=== PATIENT | male | born 1945 | race Caucasian/White ===

== ENCOUNTER 2023-04-05 12:59 | Inpatient (IN) | payer OTHER, SELFPAY ==
[2023-04-05] VITALS (12 sets, daily range): BP systolic 97–134; BP diastolic 45–92; PULSE 80; BMI 24.3
--- NOTE | 2023-04-05 10:55 | ED.GENMED ---
History of Present Illness
General
Chief Complaint: Change in Mental Status
Time Seen by Provider: 04/05/23 10:53
Travel History
Have you had any contact with someone who has COVID-19?: No
Do you have any symptoms of coronavirus? Fever > 100 degrees, chills, cough, shortness of breath, sore throat, loss of taste or smell, muscle aches, or headache?: No
History of Present Illness
History of Present Illness:
HPI: The patient presents from [facility] after an unresponsive episode. EMS noted initial hypotension but upon arrival here blood pressure is 122/71. The patient has a history of dementia and is currently unknown historian.
EXAM:
GENERAL: Appears in no distress, resting comfortably but does not participate with examination, he keeps his eyes closed but quickly responds to sternal rub
HEENT: Slightly dry oral mucosa
CARDIOVASCULAR: Regular rate and rhythm
PULMONARY: No respiratory distress, breathing is nonlabored, equal and clear breath sounds
ABDOMEN: Soft and nontender with no peritoneal signs
NEUROLOGIC: The patient has evidence of dementia, does not participate with exam and currently is nonverbal
EXTREMITIES: Moves all extremities equally, no tenderness, no edema
PYSCHIATRIC: Very limited historian, untestable insight and judgment
ED COURSE:
11 AM: I initially evaluated patient
NUMBER AND COMPLEXITY OF PROBLEMS ADDRESSED AT THE ENCOUNTER
� Chronic conditions affecting care: Dementia, diabetes, high blood pressure
� Acute Exacerbation and/or Progression of Chronic Illness: This is an acute problem
� Differential Diagnosis includes: Hypoglycemia, worsening dementia, bacteremia sepsis unlikely given normal initial vital signs and normal white count, DANIEL
AMOUNT AND/OR COMPLEXITY OF DATA TO BE REVIEWED AND ANALYZED
� I performed an independent evaluation of and my interpretation is:
EKG: Sinus 77, leftward axis deviation, right bundle branch block, this is not significantly changed in comparison to 03/22/2023
CT:
X-rays:
Laboratory Studies: White count normal, renal function is now 1.8, it was 1.4 last ED visit and prior to that was normal at baseline
Other:
� Review of other/old records: I reviewed the notes from [facility], the patient was seen here after syncopal event 2 weeks ago
� Clinical information was obtained by an independent historian: I tried calling daughter and the spouse at about 11:40 AM but there was no answer.
� Prescriptions/Medications Considered but not given:
� Further testing considered but not performed:
RISK OF COMPLICATIONS AND/OR MORBIDITY OR MORTALITY OF PATIENT MANAGEMENT
� Social determinants of health affecting care: From [facility]
� Discussion with other providers: Hospitalist for admission 11:43 AM
� Escalation of care including admission/observation vs risk of discharge considered: The patient has worsening renal function. He was given a liter of fluid. DANIEL likely due to dehydration but will check bladder scan. Bladder
scan only 90 mL. Mental status remains about the same on reassessment. I did review the ER notes from last visit from 2 weeks ago and at that time he also was not answering questions.
Past History
Past History
ED Past Medical History: HTN, Hypercholesterolemia, NIDDM and Other (Dementia)
ED Past Surgical History: Other (Unknown)
Social History
Tobacco: Non-smoker
Alcohol: Occasional
Drug: None
Personal:
Living: shelter
Employment: Retired
Family History
Family History: Other
Phy Exam
Physical Exam
Physical Exam:
See HPI
Course
Orders/Labs/Results
Orders:
Orders
04/05/23 10:42
Electrocardiogram (*1) Urgent
Reason for Study: Syncope
04/05/23 10:43
EKG- Treatment ONCE
04/05/23 10:51
CMP [Comprehensive Metabolic Panel] Urgent
Complete Blood Count/With Diff Urgent
04/05/23 11:23
0.9% Sodium Chloride 1000 ml [Nss] 1,000 ml IV BOLUS
Abnormal Lab Results
04/05/23
10:51
RBC 3.80 L 10^6/uL
(4.70-6.10)
Hgb 12.7 L g/dL
(13.0-18.0)
Hct 35.8 L %
(39.0-52.0)
MCV 94.2 H fL
(80.0-94.0)
MCH 33.4 H pg
(27.0-31.0)
Abs Immat Gran (auto) 0.1 H 10^3/uL
(0-0.05)
Immature Gran % 1.0 H %
(0-0.5)
Lymphocytes % 15.8 L %
(20.5-51.1)
BUN 45 H mg/dl
(9-20)
Creatinine 1.8 H mg/dL
(0.7-1.3)
Glucose 206 H mg/dl
(70-99)
04/05/23 10:51
04/05/23 10:51
Vital Signs
Initial and Last Documented VS:
Initial Vital Signs
Temp Pulse Resp BP Pulse Ox
97.7 F 70 18 122/71 98
04/05/23 10:44 04/05/23 10:44 04/05/23 10:44 04/05/23 10:44 04/05/23 10:44
Last Documented Vital Signs
Temp Pulse Resp BP Pulse Ox
97.7 F 75 15 123/63 94
04/05/23 10:44 04/05/23 11:30 04/05/23 11:30 04/05/23 11:00 04/05/23 11:30
*Critical Care Note
Total Time (30-74mins, 75-104mins- exclusive of procedures): Not Applicable
ED Attending Note
-
Portions of this chart may have been created with voice recognition software.� Occasional wrong word or��sound alike� substitutions may have occurred due to the inherent limitations of voice recognition software.
Discharge Plan
Departure
Patient Disposition: Admit
Date of Disposition: 04/05/23
Time of Disposition: 11:47
Presentation/result/management discussed w/ accepting MD/DO: Hospitalist
Discharge Problem:
DANIEL (acute kidney injury)
Prescriptions:
No Action
finasteride 5 mg Tablet
5 mg PO DAILY
carvedilol 6.25 MG tablet
6.25 mg PO DAILY
cholecalciferol (vitamin D3) 2,000 UNITS tablet
2,000 units PO BID
melatonin 10 MG capsule
10 mg PO HSPRN PRN (Reason: sleep)
omega 7-dzh-fug-fish oil [Fish Oil] 1 EACH capsule
1 ea PO DAILY
ammonium lactate 12 % Lotion
1 applic TOPICAL BID
therapeutic multivitamin Tablet
1 tab PO DAILY
pantoprazole 40 mg Tablet,Delayed Release (Dr/Ec)
40 mg PO DAILY Qty: 30 0RF
repaglinide 1 MG tablet
1 mg PO TID Qty: 30 0RF
irbesartan-hydrochlorothiazide 150-12.5 mg Tablet
1 tab PO DAILY
loperamide 2 mg Tablet
2 mg PO Q4HPRN PRN (Reason: diarrhea)
lorazepam 0.5 mg Tablet
0.5 mg PO Q6HPRN PRN (Reason: anxiety)
lorazepam 0.5 mg Tablet
0.5 mg PO BID
glipizide 2.5 mg Tablet Extended Release 24hr
12.5 mg PO DAILY
pioglitazone [Actos] 30 mg Tablet
30 mg PO DAILY
Desitin 40 % Paste
1 applic TOPICAL BID
magnesium oxide 500 mg tablet
500 mg PO BID
Interventions
Interventions:
*Risk Screen - Suicide Last Done: 04/05/23 10:44
*General Assessment Last Done: 04/05/23 10:44
*Neglect/Abuse Screening Last Done: 04/05/23 10:44
*ED COVID-19 Vaccine History Last Done: 04/05/23 10:44
ED- Pulmonary Assessment Last Done: 04/05/23 11:33
ED- Neurological Assessment Last Done: 04/05/23 11:33
ED- Cardiac Assessment Last Done: 04/05/23 11:33
[2023-04-05 11:00] LABS: % Basophils 0.7 % (0-2); % Eosinophils 2.2 % (0-6); % Lymphocytes 15.8 % (20.5-51.1); % Monocytes 7.7 % (1.7-9.3); % Neutrophils 72.6 % (42.2-75.2); Absolute Basophils 0.1 10^3/uL (0-0.2); Absolute Eosinophils 0.2 10^3/uL (0-0.7); Absolute Immature Granulocytes 0.1 10^3/uL (0-0.05); Absolute Lymphocytes 1.2 10^3/uL (1.2-3.4); Absolute Monocytes 0.6 10^3/uL (0.1-0.6); Absolute Neutrophils 5.3 10^3/uL (1.4-6.5); Hematocrit 35.8 % (39.0-52.0); Hemoglobin 12.7 g/dL (13.0-18.0); Mean Corp Hgb Conc. 35.5 g/dL (33.0-37.0); Mean Corpuscular Hgb 33.4 pg (27.0-31.0); Mean Corpuscular Volume 94.2 fL (80.0-94.0); Mean Platelet Volume 9.8 fL (7.4-10.4); Nucleated Red Blood Cells % 0 % (-); Platelet Count 227 10^3/uL (130-400); Red Cell Dist. Width 13.2 % (11.5-14.5); White Blood Cell Count 7.3 10^3/uL (4.8-10.8)
[2023-04-05 11:17] LABS: ALT (SGPT) 17 U/L (0-50); AST (SGOT) 24 U/L (17-59); Albumin 3.8 g/dl (3.5-5.0); Alkaline Phosphatase 64 U/L (38-126); Blood Urea Nitrogen 45 mg/dl (9-20); Calcium 9.2 mg/dl (8.4-10.2); Carbon Dioxide 26 mmol/L (22-30); Chloride 105 mmol/L (98-107); Glucose 206 mg/dl (70-99); Potassium 4.5 mmol/L (3.5-5.1); Sodium 137 mmol/L (135-145); Total Protein 6.6 g/dl (6.3-8.2); eGFR 38.29
[2023-04-05] MEDS: NSS 1000 IV ×2 (11:28→17:02)
--- NOTE | 2023-04-05 12:45 | HPS.HSE ---
Addendum entered and electronically signed by Michi Minor MD 04/05/23 16:39:
I saw and examined the patient.
The WRAPPER SELECTOR or PA's note was reviewed and I agree with the note.
Comment:
77-year-old male past medical history of dementia, hypertension and diabetes who presents following 'unresponsive episode' at breakfast today.� Patient episode of hypotension, resolved with 200 cc bolus. Patient with normotensive although still
does not respond to any provider, although maintaining airway. Patient was seen in March 22 for similar episode that occurred in the shower. Plan�follow-up orthostatics, continue fluids. Unresponsive episode may be vasovagal versus orthostatic
hypotension. Continue to monitor mental status. Can follow-up CT head. If holding antihypertensives. Hold oral meds in setting of DANIEL and poor oral intake. Monitor serum creatinine. Patient's prognosis guarded
Original Note:
Family Physician
-
Family Physician: INTERVIEWE UNKNOWN - PT NOT
Chief Complaint
-
Unresponsive Episode
History of Present Illness
Patient 77-year-old male past medical history of dementia, hypertension and diabetes who presents following 'unresponsive episode' at breakfast today. Patient resides at a local assisted living/dementia unit. EMS was called following the episode
who noted patient to be hypotensive. However, upon arrival to the emergency department patient was normotensive. Patient was seen here that was also emergency department March 22 following a similar episode that occurred in the shower. Patient
is unable to provide any additional history.
Medical History
Past Medical History
Past Medical History: Reports Other
Additional Past Medical History:
Essential Hypertension
Diabetes Mellitus, Type II
Dementia
BPH
Past Surgical History: Reports Other (Unknown)
Social History
Unable to obtain full social history at this time due to: Dementia
Living: Assisted Living (Dementia Unit)
Family History
Family History: Unable to Obtain
Allergies / Home Medications
Allergies reflects when Allergies were last updated in [facility].
Home Medications with original date entered in [facility]
Allergy/Medication List:
Allergies
Allergy/AdvReac Type Severity Reaction Status Date / Time
Sulfa (Sulfonamide Allergy per NH Verified 06/08/22 10:05
Antibiotics) records
Home Medications
finasteride 5 mg tablet 5 mg PO DAILY Urinary issue 03/16/17
carvedilol 6.25 mg tablet 6.25 mg PO DAILY Heart disease/condition 11/18/20
ammonium lactate 12 % lotion 1 applic topical BID both feet 04/04/22
glipizide 2.5 mg tablet, extended release 24 hr 2.5 mg PO DAILY take with 10mg 06/08/22
irbesartan 150 mg-hydrochlorothiazide 12.5 mg tablet 1 tab PO DAILY Blood Pressure 06/08/22
lorazepam 0.5 mg tablet 0.5 mg PO BID anxiety 06/08/22
lorazepam 0.5 mg tablet 0.5 mg PO Q6HPRN PRN anxiety 06/08/22
pioglitazone 30 mg tablet (Actos) 30 mg PO DAILY diabetes 06/08/22
magnesium oxide 500 mg PO BID Supplement 03/22/23
Multi Complete Capsule 1 cap PO DAILY Supplement 04/05/23
cholecalciferol (vitamin D3) 50 mcg (2,000 unit) tablet 50 mcg PO BID Supplement 04/05/23
docusate sodium 100 mg capsule 100 mg PO MOWEFR@0800 Constipation 04/05/23
glipizide 10 mg tablet, extended release 24 hr 10 mg PO DAILY Diabetes 04/05/23
loperamide 2 mg capsule 2 mg PO Q4H PRN diarrhea 04/05/23
melatonin 10 mg tablet 10 mg PO HS PRN insomnia 04/05/23
omega 4-zks-iee-fish oil 1,000 mg (120 mg-180 mg) capsule (Fish Oil) 1 cap PO DAILY Supplement 04/05/23
pantoprazole 40 mg tablet,delayed release 40 mg PO DAILY Gastrointestinal Issue 04/05/23
repaglinide 1 mg tablet 1 mg PO TID diabetes 04/05/23
zinc oxide-cod liver oil 40 % topical paste (Desitin) 1 applic topical BID apply to buttocks 04/05/23
Review of Systems
-
Unable to obtain full review of systems at this time due to: Dementia
Physical Exam
Vital Signs
Vital Signs
Temp Pulse Resp BP Pulse Ox
97.7 F 73 10 121/80 96
04/05/23 10:44 04/05/23 12:15 04/05/23 12:15 04/05/23 12:00 04/05/23 12:15
Physical Exam
General: Well Developed, Well Nourished and Comfortable
HEENT: NormoCephalic, Anicteric and Atraumatic
Respiratory: Clear and Non Labored Respirations
Cardiac: S1/S2 and Regular Rhythm
GI: Soft, Non Tender and Non Distended
Rectal: Deferred by Provider
Musculoskeletal: No Clubbing, No Cyanosis and Other (+1 edema LLE; No significant edema RLE)
Skin: Warm and Dry
Neuro: Awake, Alert and Other (Non-verbal; RUE appears contracted; Did follow command to squeeze with left hand)
Psych: Apparent Dementia
Laboratory Results
-
04/05/23 10:51
04/05/23 10:51
Laboratory Results
Total Bilirubin 1.0 mg/dl (0.2-1.3) 04/05/23 10:51
AST 24 U/L (17-59) 04/05/23 10:51
ALT 17 U/L (0-50) 04/05/23 10:51
Alkaline Phosphatase 64 U/L (38-126) 04/05/23 10:51
Data Reviewed
-
Lab Data: Labs Reviewed by me
Impression/Plan
-
Acute Kidney Injury
-Continue IVFS
-Recheck creatinine in AM
'Unresponsive Episode' possibly vasovagal vs orthostatic
-Check orthostatic vital signs
-Monitor on Telemetry
Left Lower Ext Edema
-Check peripheral vascular ultrasound
Essential Hypertension
-Hold irbesartan and HCTZ
-Continue Coreg
Diabetes Mellitus, Type II
-Hold all oral meds in setting of DANIEL and poor oral intake
-Monitor sugars and continue coverage insulin
Dementia
-Continue Ativan BID and PRN as prior to admission
BPH
-Continue finasteride
DVT proph: SC Heparin
Code Status: Previous admission patient was DNR. However current paperwork from facility indicate Full Code. Attempted to contact spouse and daughter without answer or ability to leave message. Will make Full Code until able to speak with family.
--- NOTE | 2023-04-05 16:02 | PTCARENOTE ---
Rn flow plain clothes police officer- Called to [facility] nursing tool and die supervisor for admission assessment.
--- NOTE | 2023-04-05 16:28 | PTOTSP ---
Speech Language Pathology
Pt seen for clinical bedside swallow evaluation. P.O. trials of puree, regular solids, and thin liquids provided. Adequate mastication, bolus formation, and A-P transit noted with no oral residue. Brief cough post regular solids x1. No other
coughing noted.
Recommend:
(1) Regular solids/thin liquids
(2) General aspiration precautions: assist as needed with full supervision, sit upright, slow rate
(3) Meds as tolerated
(4) PROGRAM FACILITATOR to follow, likely briefly
[2023-04-05] MEDS: HEPARIN 5000 UNITS SC (17:01)
[2023-04-05 17:29] LABS: Glucose - Point of Care 192 mg/dl (70-99)
[2023-04-05] MEDS: NOVOLOG FLEXPEN-MODERATE RESISTANCE 1 UNITS SC (18:37)
[2023-04-05] MEDS: ATIVAN 0.5 MG PO (19:56)
[2023-04-05] MEDS: VITAMIN D3 (cholecalciferol) 50 MCG PO (19:56)
[2023-04-05 21:23] LABS: Glucose - Point of Care 117 mg/dl (70-99)
[2023-04-06] MEDS: HEPARIN 5000 UNITS SC ×4 (00:02→23:04)
[2023-04-06 03:30] VITALS: BP 133/67
[2023-04-06] MEDS: NSS 1000 IV ×2 (04:05→15:21)
[2023-04-06 05:49] VITALS: BMI 24.7
--- NOTE | 2023-04-06 05:59 | PTCARENOTE ---
Pt. continuously trying to remove IV's, biting IV's, removing tele monitor and putting tele leads in mouth and trying to chew on them. Wrapping blanket around head. SUSANA Valenzuela notified. Rec'd new order for b/l wrist restraints. Restraints
placed per orders. Plan of care ongoing.
[2023-04-06 07:38] LABS: Hematocrit 34.1 % (39.0-52.0); Mean Corp Hgb Conc. 35.2 g/dL (33.0-37.0); Mean Corpuscular Hgb 33.3 pg (27.0-31.0); Mean Corpuscular Volume 94.7 fL (80.0-94.0); Mean Platelet Volume 9.9 fL (7.4-10.4); Platelet Count 207 10^3/uL (130-400); Red Cell Dist. Width 12.6 % (11.5-14.5)
[2023-04-06 08:17] VITALS: BP 130/71
[2023-04-06 08:27] LABS: Glucose - Point of Care 92 mg/dl (70-99)
[2023-04-06] MEDS: NOVOLOG FLEXPEN-MODERATE RESISTANCE SC (08:28)
[2023-04-06] MEDS: PROTONIX 40 MG PO (08:30)
[2023-04-06] MEDS: COREG 6.25 MG PO (08:31)
[2023-04-06] MEDS: PROSCAR 5 MG PO (08:31)
[2023-04-06] MEDS: VITAMIN D3 (cholecalciferol) 50 MCG PO ×2 (08:31→19:42)
[2023-04-06] MEDS: ATIVAN 0.5 MG PO ×2 (08:32→19:42)
[2023-04-06 08:39] LABS: Blood Urea Nitrogen 28 mg/dl (9-20); Calcium 8.7 mg/dl (8.4-10.2); Carbon Dioxide 24 mmol/L (22-30); Chloride 108 mmol/L (98-107); Estimated Creatinine Clearance 52 ml/min; Glucose 98 mg/dl (70-99); Magnesium 1.6 mg/dl (1.6-2.3); Potassium 3.8 mmol/L (3.5-5.1); Sodium 136 mmol/L (135-145); eGFR 56.58
[2023-04-06 08:51] LABS: Glycohemoglobin (HgbA1c) 9.4 % (4.0-5.6)
[2023-04-06 08:52] LABS: TSH Reflex To Free T4 1.25 uIU/ml (0.47-4.68)
--- NOTE | 2023-04-06 11:24 | W.PN.HOSP.TC ---
Today's Communication/Plan
-
take off restraints and monitor
F/u UA
orthostatics if feasible
DC planning
Assessment / Plan
Assessment / Plan
Physical Exam
General: Well Developed, Well Nourished and Comfortable
HEENT: NormoCephalic, Anicteric and Atraumatic
Respiratory: Clear and Non Labored Respirations
Cardiac: S1/S2 and Regular Rhythm
GI: Soft, Non Tender and Non Distended
Rectal: Deferred by Provider
Musculoskeletal: No Clubbing, No Cyanosis and Other (+1 edema LLE)
Skin: Warm and Dry
Neuro: Awake, Alert and Other (Verbal saying good morning); Did follow command to squeeze with left hand)
Psych: Apparent Dementia
Acute Kidney Injury
-s/p fluids
-Resolved
'Unresponsive Episode' possibly vasovagal vs orthostatic
-restraints on due to combative overnight;
-most likely 2/2 to dementia
--Monitor on Telemetry
-Orthostatics if possible
-Hold antihtns
-UA F/u
Left Lower Ext Edema
-peripheral vascular ultrasound - negative
Essential Hypertension
-Hold irbesartan and HCTZ
-Continue Coreg
Diabetes Mellitus, Type II
-Hold all oral meds in setting of DANIEL and poor oral intake
-Monitor sugars and continue coverage insulin
Dementia
-Continue Ativan BID and PRN as prior to admission
BPH
-Continue finasteride
DVT proph: SC Heparin
Code Status: Previous admission patient was DNR.� However current paperwork from facility indicate Full Code. Attempted to contact spouse and daughter without answer or ability to leave message.� Will make Full Code until able to speak with family.
Anticipated Discharge: Within 24 hours
Subjective/Interval History
-
Date of Service: April 06, 2023
Patient required restraints overnight, awake and responding to good morning. Otherwise awake but not responding to any other questions
Objective Data
-
Labs:
Laboratory Results
04/06/23
07:08
WBC 5.0
Hgb 12.0 L
Hct 34.1 L
Plt Count 207
Sodium 136
Potassium 3.8
Chloride 108 H
Carbon Dioxide 24
BUN 28 H
Creatinine 1.3
Glucose 98
Calcium 8.7
Vital Signs:
Vital Signs
Temp Pulse Resp BP Pulse Ox
98.1 F 74 17 130/71 98
04/06/23 08:17 04/06/23 08:17 04/06/23 08:17 04/06/23 08:17 04/06/23 08:17
I&O
04/05/23 04/06/23 04/07/23
06:59 06:59 06:59
Intake Total 220 / 220
Balance 220 / 220
Review of Systems
-
History Source: Patient
All other systems: Not reviewed unless documented
Data Reviewed
-
Diagnostic Radiology: Image personally visualized and interpreted and Report Reviewed by me
Labs: Labs Reviewed by me
--- NOTE | 2023-04-06 11:48 | CM ---
Reviewed chart, placed a call to patient's to obtain information for assessment. Patient's answered and stated that she could talk. She stated that patient lives in the [facility] Care part of the [facility]. He is dependent with all ADLs, self
care, bathing, dressing and toileting. Per his he is a max assist of 2 for transfers and bed mobility.
He needs assistance for grooming and eating.
Patient's PCP is Dr. Sarah Rivera
He gets his medications through [facility] or [facility].
Patient's made aware that patient is calm at the moment but was removing his leads and therefore had to be restrained. She was advised that CM will have to review functional and behavioral status with [facility] prior to him returning. Patient's
was agreeable to this. She stated that she is taking a trip Monday-Monday. She stated if she continues to be agitated she will stay.
Spoke with attending who is aware that patient can't return until he is no longer exhibiting behaviors.
Plan: Case management will continue to follow and assist with discharge planning. Patient's would like for him to return back to the [facility] when his behaviors are managed and he is medically stable.
[2023-04-06 11:59] LABS: Urine Albumin Negative (Neg - Trace); Urine Bilirubin Negative (Negative); Urine Character Clear (Clear); Urine Color Straw; Urine Glucose 1+ (Negative); Urine Ketone Negative (Negative); Urine Leukocyte Trace (Negative); Urine Nitrite Positive (Negative); Urine Occult Blood Negative (Negative); Urine Urobilinogen Negative (Neg - 1+); Urine pH 6.5 (5.0-9.0)
[2023-04-06 12:11] LABS: Urine Squamous Cell 0-2 /LPF (Few)
[2023-04-06 12:12] LABS: Urine Red Blood Cell 0-2 /HPF (0-2)
[2023-04-06 12:13] LABS: Urine Bacteria Many (Negative)
[2023-04-06 12:15] LABS: Glucose - Point of Care 181 mg/dl (70-99)
[2023-04-06 12:21] VITALS: BP 116/64; BP 81/49; PULSE 71; PULSE 72
[2023-04-06] MEDS: NOVOLOG FLEXPEN-MODERATE RESISTANCE 1 UNITS SC ×2 (12:42→17:21)
[2023-04-06 15:04] VITALS: BP 115/69
[2023-04-06 17:08] LABS: Glucose - Point of Care 156 mg/dl (70-99)
--- NOTE | 2023-04-06 17:19 | PTCARENOTE ---
Pt off restraints.
[2023-04-06 19:23] VITALS: BP 122/66
[2023-04-06 20:08] LABS: Hepatitis C Antibody Negative (Negative)
[2023-04-06 21:38] LABS: Glucose - Point of Care 213 mg/dl (70-99)
[2023-04-06 22:12] VITALS: BP 126/80
[2023-04-07] MEDS: NSS 1000 IV ×2 (03:13→16:05)
[2023-04-07] MEDS: ATIVAN 0.5 MG PO ×3 (03:23→19:48)
[2023-04-07 03:39] VITALS: BP 125/103; BMI 25.5
[2023-04-07 07:29] LABS: Blood Urea Nitrogen 22 mg/dl (9-20); Calcium 8.5 mg/dl (8.4-10.2); Carbon Dioxide 22 mmol/L (22-30); Chloride 110 mmol/L (98-107); Estimated Creatinine Clearance 57 ml/min; Glucose 119 mg/dl (70-99); Sodium 135 mmol/L (135-145); eGFR > 60.00
[2023-04-07 07:50] VITALS: BP 124/74
[2023-04-07 08:14] LABS: Glucose - Point of Care 111 mg/dl (70-99)
[2023-04-07] MEDS: NOVOLOG FLEXPEN-MODERATE RESISTANCE SC (09:27)
[2023-04-07] MEDS: VITAMIN D3 (cholecalciferol) 50 MCG PO ×2 (09:27→19:48)
[2023-04-07] MEDS: PROTONIX 40 MG PO (09:28)
[2023-04-07] MEDS: COLACE 100 MG PO (09:29)
[2023-04-07] MEDS: PROSCAR 5 MG PO (09:29)
[2023-04-07] MEDS: COREG 6.25 MG PO (09:30)
[2023-04-07] MEDS: HEPARIN 5000 UNITS SC ×3 (09:30→23:53)
[2023-04-07] MEDS: ROCEPHIN 1000 MG IV (10:54)
[2023-04-07] MEDS: STERILE WATER FOR INJECTION 10 ML IV (10:55)
[2023-04-07 11:42] VITALS: BP 105/57
[2023-04-07 12:37] LABS: Glucose - Point of Care 238 mg/dl (70-99)
[2023-04-07] MEDS: NOVOLOG FLEXPEN-MODERATE RESISTANCE 3 UNITS SC (13:15)
--- NOTE | 2023-04-07 13:18 | W.PN.HOSP.TC ---
Today's Communication/Plan
-
abx
f/u cultures
hold antihypertensives
resume oral hypoglycemics
Assessment / Plan
Assessment / Plan
Physical Exam
General: Well Developed, Well Nourished and Comfortable
HEENT: NormoCephalic, Anicteric and Atraumatic
Respiratory: Clear and Non Labored Respirations
Cardiac: S1/S2 and Regular Rhythm
GI: Soft, Non Tender and Non Distended
Rectal: Deferred by Provider
Musculoskeletal: No Clubbing, No Cyanosis and Other (+1 edema LLE)
Skin: Warm and Dry
Neuro: Awake, Alert and Other (Verbal saying good morning); Did follow command to squeeze with left hand)
Psych: Apparent Dementia
Acute Kidney Injury
-s/p fluids
-Resolved
'Unresponsive Episode' possibly vasovagal vs orthostatic
-restraints on due to combative overnight;
-most likely 2/2 to dementia +/- delirium
--Monitor on Telemetry
-Orthostatics if possible - patient was restrained prior
-Hold antihtn meds
-UA F/u
#?UTI
-F/u cultures
-Cont ceftriaxone
Left Lower Ext Edema
-peripheral vascular ultrasound - negative
Essential Hypertension
-Hold irbesartan and HCTZ
-Continue Coreg
Diabetes Mellitus, Type II
-resume oral meds
-Monitor sugars and continue coverage insulin
Dementia
-Continue Ativan BID and PRN as prior to admission
BPH
-Continue finasteride
DVT proph: SC Heparin
Code Status: Previous admission patient was DNR.� However current paperwork from facility indicate Full Code. Attempted to contact spouse and daughter without answer or ability to leave message.� Will make Full Code until able to speak with family.
Anticipated Discharge: > 48 hours
Subjective/Interval History
-
Date of Service: April 07, 2023
No acute events overnight
Objective Data
-
Labs:
Laboratory Results
04/07/23
06:50
Sodium 135
Potassium 4.0
Chloride 110 H
Carbon Dioxide 22
BUN 22 H
Creatinine 1.2
Glucose 119 H
Calcium 8.5
Vital Signs:
Vital Signs
Temp Pulse Resp BP Pulse Ox
97.3 F 81 18 105/57 96
04/07/23 11:42 04/07/23 11:42 04/07/23 11:42 04/07/23 11:42 04/07/23 11:42
I&O
04/06/23 04/07/23 04/08/23
06:59 06:59 06:59
Intake Total 220 / 220 2430 / 2430
Output Total 450 / 450
Balance 220 / 220 1979 / 1979
Review of Systems
-
History Source: Patient
All other systems: Not reviewed unless documented
Data Reviewed
-
Diagnostic Radiology: Image personally visualized and interpreted and Report Reviewed by me
Labs: Labs Reviewed by me
--- NOTE | 2023-04-07 14:04 | CM ---
Addendum entered by SELENA Peraza 04/07/23 15:52:
Received a call from patient's who wanted update. As the information she wanted was clinical, provided nursing station #. She was appreciative.
Original Note:
Spoke with RN who stated that patient is off restraints. Spoke with PT who stated that their service signed off as well as OT as patient is at baseline. Will review patient's functional status with his memory care unit prior to his return.
Plan: Case management will continue to follow and assist with discharge planning. Plan is back to [facility] upon medical clearance.
[2023-04-07] MEDS: GLUCOTROL XL (EXTENDED RELEASE) 12.5 MG PO (14:59)
[2023-04-07 15:05] VITALS: BP 153/76
[2023-04-07] MEDS: PRANDIN 1 MG PO ×2 (16:04→21:06)
[2023-04-07 17:21] LABS: Glucose - Point of Care 183 mg/dl (70-99)
[2023-04-07] MEDS: NOVOLOG FLEXPEN-MODERATE RESISTANCE 1 UNITS SC (18:06)
[2023-04-07 19:09] VITALS: BP 118/63
[2023-04-07 21:12] LABS: Glucose - Point of Care 115 mg/dl (70-99)
[2023-04-07 23:15] VITALS: BP 159/78
[2023-04-08 06:00] VITALS: BMI 25.5
[2023-04-08 07:00] LABS: Hematocrit 35.5 % (39.0-52.0); Hemoglobin 12.8 g/dL (13.0-18.0); Mean Corp Hgb Conc. 36.1 g/dL (33.0-37.0); Mean Corpuscular Hgb 33.7 pg (27.0-31.0); Mean Corpuscular Volume 93.4 fL (80.0-94.0); Mean Platelet Volume 9.9 fL (7.4-10.4); Platelet Count 226 10^3/uL (130-400); Red Cell Dist. Width 12.9 % (11.5-14.5); White Blood Cell Count 6.3 10^3/uL (4.8-10.8)
[2023-04-08 07:10] VITALS: BP 126/89
[2023-04-08 07:30] LABS: ALT (SGPT) 18 U/L (0-50); AST (SGOT) 26 U/L (17-59); Albumin 3.5 g/dl (3.5-5.0); Alkaline Phosphatase 65 U/L (38-126); Blood Urea Nitrogen 17 mg/dl (9-20); Calcium 8.9 mg/dl (8.4-10.2); Carbon Dioxide 23 mmol/L (22-30); Chloride 109 mmol/L (98-107); Estimated Creatinine Clearance 62 ml/min; Glucose 86 mg/dl (70-99); Magnesium 1.7 mg/dl (1.6-2.3); Potassium 4.1 mmol/L (3.5-5.1); Sodium 138 mmol/L (135-145); Total Bilirubin 0.7 mg/dl (0.2-1.3); Total Protein 6.2 g/dl (6.3-8.2); eGFR > 60.00
[2023-04-08] MEDS: GLUCOTROL XL (EXTENDED RELEASE) 2.5 MG PO (07:46)
[2023-04-08] MEDS: PROTONIX 40 MG PO (07:46)
[2023-04-08] MEDS: GLUCOTROL XL (EXTENDED RELEASE) 10 MG PO (07:46)
[2023-04-08] MEDS: VITAMIN D3 (cholecalciferol) 50 MCG PO ×2 (07:47→20:08)
[2023-04-08] MEDS: PROSCAR 5 MG PO (07:47)
[2023-04-08] MEDS: COREG 6.25 MG PO (07:47)
[2023-04-08] MEDS: ATIVAN 0.5 MG PO ×2 (07:47→20:08)
[2023-04-08] MEDS: PRANDIN 1 MG PO ×3 (07:48→22:03)
[2023-04-08] MEDS: HEPARIN 5000 UNITS SC ×3 (07:49→23:13)
[2023-04-08] MEDS: STERILE WATER FOR INJECTION 10 ML IV (09:14)
[2023-04-08] MEDS: ROCEPHIN 1000 MG IV (09:14)
[2023-04-08 09:27] LABS: Glucose - Point of Care 78 mg/dl (70-99)
[2023-04-08] MEDS: NOVOLOG FLEXPEN-MODERATE RESISTANCE SC ×3 (09:37→17:49)
--- NOTE | 2023-04-08 12:12 | CM ---
Chart reviewed.
Pt from [facility]
Called and spoke to Nano regarding pt returning to facility
Nano reporting will check with Nsg Mgr and return call
Waiting for call back
--- NOTE | 2023-04-08 12:17 | W.PN.HOSP.TC ---
Today's Communication/Plan
-
Antibiotics
Assessment / Plan
Assessment / Plan
Physical Exam
General: Well Developed, Well Nourished and Comfortable
HEENT: NormoCephalic, Anicteric and Atraumatic
Respiratory: Clear and Non Labored Respirations
Cardiac: S1/S2 and Regular Rhythm
GI: Soft, Non Tender and Non Distended
Rectal: Deferred by Provider
Musculoskeletal: No Clubbing, No Cyanosis and Other (+1 edema LLE)
Skin: Warm and Dry
Neuro: Awake, Alert and Other (Verbal saying good morning); Did follow command to squeeze with left hand)
Psych: Apparent Dementia
Acute Kidney Injury
-s/p fluids
-Resolved
'Unresponsive Episode' possibly vasovagal vs orthostatic
-restraints on due to combative overnight;
-most likely 2/2 to dementia +/- delirium
--Monitor on Telemetry
-Orthostatics if possible - patient was restrained prior
-Hold antihtn meds
-UA F/u
#?UTI
-F/u cultures�has been coag negative staph
-Cont ceftriaxone
Left Lower Ext Edema
-peripheral vascular ultrasound - negative
Essential Hypertension
-Hold irbesartan and HCTZ�has been normotensive
-Continue Coreg
Diabetes Mellitus, Type II
-resume oral meds
-Monitor sugars and continue coverage insulin
Dementia
-Continue Ativan BID and PRN as prior to admission
BPH
-Continue finasteride
DVT proph: SC Heparin
Code Status: Previous admission patient was DNR.� However current paperwork from facility indicate Full Code. Attempted to contact spouse and daughter without answer or ability to leave message.� Will make Full Code until able to speak with family.
Anticipated Discharge: Within 24 hours
Subjective/Interval History
-
Date of Service: April 08, 2023
No acute events overnight
Objective Data
-
Labs:
Laboratory Results
04/08/23
06:16
WBC 6.3
Hgb 12.8 L
Hct 35.5 L
Plt Count 226
Sodium 138
Potassium 4.1
Chloride 109 H
Carbon Dioxide 23
BUN 17
Creatinine 1.1
Glucose 86
Calcium 8.9
Total Bilirubin 0.7
AST 26
ALT 18
Alkaline Phosphatase 65
Vital Signs:
Vital Signs
Temp Pulse Resp BP Pulse Ox
97.7 F 71 18 126/89 98
04/08/23 07:10 04/08/23 07:10 04/08/23 07:10 04/08/23 07:10 04/08/23 07:10
I&O
04/07/23 04/08/23 04/09/23
06:59 06:59 06:59
Intake Total 2430 / 2430 1500 / 1500
Output Total 450 / 450
Balance 1979 / 1979 1500 / 1500
Review of Systems
-
History Source: Patient
All other systems: Not reviewed unless documented
Data Reviewed
-
Diagnostic Radiology: Image personally visualized and interpreted and Report Reviewed by me
Labs: Labs Reviewed by me
[2023-04-08 13:01] LABS: Glucose - Point of Care 137 mg/dl (70-99)
[2023-04-08 15:03] VITALS: BP 116/72
[2023-04-08 17:47] LABS: Glucose - Point of Care 143 mg/dl (70-99)
[2023-04-08 21:50] LABS: Glucose - Point of Care 100 mg/dl (70-99)
--- NOTE | 2023-04-08 22:33 | PTCARENOTE ---
pt pulled out IV access, called IV team to replace- GYROSCOPE REPAIRER tried twice to get a line, pt would not stop moving so GYROSCOPE REPAIRER unable to obtain access. pt has no IV access.
[2023-04-08 23:05] VITALS: BP 110/73
[2023-04-08 23:43] VITALS: BP 137/76
[2023-04-09 06:00] VITALS: BMI 25.2
[2023-04-09 07:00] VITALS: BP 94/41
[2023-04-09 08:11] LABS: Glucose - Point of Care 93 mg/dl (70-99)
[2023-04-09] MEDS: HEPARIN 5000 UNITS SC ×3 (08:46→23:23)
[2023-04-09] MEDS: PROSCAR 5 MG PO (08:46)
[2023-04-09] MEDS: VITAMIN D3 (cholecalciferol) 50 MCG PO ×2 (08:46→20:11)
[2023-04-09] MEDS: GLUCOTROL XL (EXTENDED RELEASE) 2.5 MG PO (08:46)
[2023-04-09] MEDS: ATIVAN 0.5 MG PO ×2 (08:46→20:11)
[2023-04-09] MEDS: PROTONIX 40 MG PO (08:46)
[2023-04-09] MEDS: PRANDIN 1 MG PO ×3 (08:46→21:47)
[2023-04-09] MEDS: GLUCOTROL XL (EXTENDED RELEASE) 10 MG PO (08:46)
[2023-04-09] MEDS: COREG PO (09:05)
[2023-04-09] MEDS: NOVOLOG FLEXPEN-MODERATE RESISTANCE SC ×2 (09:05→12:43)
[2023-04-09] MEDS: STERILE WATER FOR INJECTION 10 ML IV (09:51)
[2023-04-09] MEDS: ROCEPHIN 1000 MG IV (09:52)
--- NOTE | 2023-04-09 12:25 | W.PN.HOSP.TC ---
Today's Communication/Plan
-
abx for uti
DC ready
Assessment / Plan
Assessment / Plan
Physical Exam
General: Well Developed, Well Nourished and Comfortable
HEENT: NormoCephalic, Anicteric and Atraumatic
Respiratory: Clear and Non Labored Respirations
Cardiac: S1/S2 and Regular Rhythm
GI: Soft, Non Tender and Non Distended
Rectal: Deferred by Provider
Musculoskeletal: No Clubbing, No Cyanosis and Other (+1 edema LLE)
Skin: Warm and Dry
Neuro: Awake, Alert and Other (Verbal saying good morning); Did follow command to squeeze with left hand)
Psych: Apparent Dementia
Acute Kidney Injury
-s/p fluids
-Resolved
'Unresponsive Episode' possibly vasovagal vs orthostatic
-restraints on due to combative overnight;
-most likely 2/2 to dementia +/- delirium
--Monitor on Telemetry
-Hold antihtn meds
-UA F/u
#?UTI
-F/u cultures�has been coag negative staph
-Complete course with cipro
Left Lower Ext Edema
-peripheral vascular ultrasound - negative
Essential Hypertension
-Hold irbesartan and HCTZ�has been normotensive
-Continue Coreg
Diabetes Mellitus, Type II
-resume oral meds
-Monitor sugars and continue coverage insulin
Dementia
-Continue Ativan BID and PRN as prior to admission
BPH
-Continue finasteride
DVT proph: SC Heparin
Code Status: Previous admission patient was DNR.� However current paperwork from facility indicate Full Code. Attempted to contact spouse and daughter without answer or ability to leave message.� Will make Full Code until able to speak with family.
DC ready - CM aware
Anticipated Discharge: Within 24 hours
Subjective/Interval History
-
Date of Service: April 09, 2023
pending bed placement
Objective Data
-
Vital Signs:
Vital Signs
Temp Pulse Resp BP Pulse Ox
97.3 F 78 18 94/51 99
04/09/23 07:00 04/09/23 07:00 04/09/23 07:00 04/09/23 09:05 04/09/23 10:08
I&O
04/08/23 04/09/23 04/10/23
06:59 06:59 06:59
Intake Total 1500 / 1500 540 / 540
Balance 1500 / 1500 540 / 540
Review of Systems
-
History Source: Patient
All other systems: Not reviewed unless documented
Data Reviewed
-
Diagnostic Radiology: Image personally visualized and interpreted and Report Reviewed by me
Labs: Labs Reviewed by me
[2023-04-09 12:32] LABS: Glucose - Point of Care 140 mg/dl (70-99)
[2023-04-09 15:00] VITALS: BP 103/64
[2023-04-09 16:48] LABS: Glucose - Point of Care 193 mg/dl (70-99)
[2023-04-09] MEDS: NOVOLOG FLEXPEN-MODERATE RESISTANCE 1 UNITS SC (16:53)
[2023-04-09] MEDS: CIPRO 500 MG PO (20:11)
[2023-04-09 21:21] LABS: Glucose - Point of Care 155 mg/dl (70-99)
[2023-04-09 23:05] VITALS: BP 110/73
[2023-04-10 06:00] VITALS: BMI 24.9
[2023-04-10 07:00] VITALS: BP 133/101
[2023-04-10 08:01] LABS: Glucose - Point of Care 95 mg/dl (70-99)
[2023-04-10] MEDS: GLUCOTROL XL (EXTENDED RELEASE) 10 MG PO (08:32)
[2023-04-10] MEDS: NOVOLOG FLEXPEN-MODERATE RESISTANCE SC ×2 (08:32→12:45)
[2023-04-10] MEDS: PROTONIX 40 MG PO (08:33)
[2023-04-10] MEDS: PROSCAR 5 MG PO (08:33)
[2023-04-10] MEDS: ATIVAN 0.5 MG PO (08:33)
[2023-04-10] MEDS: CIPRO 500 MG PO (08:33)
[2023-04-10] MEDS: PRANDIN 1 MG PO ×2 (08:33→16:03)
[2023-04-10] MEDS: VITAMIN D3 (cholecalciferol) 50 MCG PO (08:33)
[2023-04-10] MEDS: GLUCOTROL XL (EXTENDED RELEASE) 2.5 MG PO (08:33)
[2023-04-10] MEDS: COREG 6.25 MG PO (08:33)
[2023-04-10] MEDS: STERILE WATER FOR INJECTION IV (08:34)
[2023-04-10] MEDS: HEPARIN 5000 UNITS SC ×2 (08:34→16:03)
[2023-04-10] MEDS: COLACE 100 MG PO (08:34)
--- NOTE | 2023-04-10 09:52 | CM ---
Placed a call to the [facility] and requested to speak with admissions/someone who could determine patient's level of appropriateness for return. Call was transferred to [facility], however had to leave a voice mail. Requested return call and referenced
patient. Will await return call.
Plan: Case management will continue to follow and assist with discharge planning/hopeful return back to the [facility] pending that they can accommodate patient's level of agitation.
[2023-04-10 11:24] VITALS: BP 102/62
--- NOTE | 2023-04-10 12:07 | W.PN.HOSP.TC ---
Addendum entered and electronically signed by Jodi Sandy MD 04/11/23 13:55:
total DC time 35 min
Original Note:
Today's Communication/Plan
-
see A/P
Assessment / Plan
Assessment / Plan
A/P:
# Acute Kidney Injury, resolved
s/p fluids
# 'Unresponsive Episode', most likely 2/2 to dementia +/- delirium
Monitor on Telemetry
Hold BP meds
# UTI
Urine Cx with staph epidermidis
Complete course with cipro
# Left Lower Ext Edema
peripheral vascular ultrasound - negative
# Essential Hypertension
Hold [employer] irbesartan and HCTZ� has been normotensive
decrease [employer] Coreg 3.125 mg BID with holding parameter
# Diabetes Mellitus, Type II
resume oral meds
Monitor sugars and continue coverage insulin
# Dementia
Continue Ativan BID and PRN as prior to admission
# BPH
Continue finasteride
DVT proph: SC Heparin
Code Status: Previous admission patient was DNR.� However current paperwork from facility indicate Full Code. Attempted to contact spouse and daughter without answer or ability to leave message.� Will make Full Code until able to speak with family.
Anticipated Discharge: Within 24 hours
Subjective/Interval History
-
Date of Service: April 10, 2023
Objective Data
-
Vital Signs:
Vital Signs
Temp Pulse Resp BP Pulse Ox
36.6 C 70 18 102/62 93
04/10/23 07:00 04/10/23 11:24 04/10/23 07:00 04/10/23 11:24 04/10/23 07:00
I&O
04/09/23 04/10/23 04/11/23
06:59 06:59 06:59
Intake Total 540 / 540 600 / 600
Balance 540 / 540 600 / 600
Review of Systems
-
Unable to obtain full review of systems at this time due to: Dementia
All other systems: Reviewed and negative
Physical Exam
-
General: Well Developed, Well Nourished, No Apparent Distress, Comfortable and Conversant; Negative Respiratory Distress
HEENT: Normocephalic, Atraumatic, Nose Appears Normal and Ears Appear Normal; Negative Oxygen
Respiratory: Clear to Auscultation and Non Labored Respirations; Negative Accessory Resp Muscle Use
Cardiac: Regular Rhythm and S1/S2
GI: Soft, Nontender, Nondistended and Normal Bowel Sounds
Skin: Warm and Dry
Neuro: Awake
Psych: Calm and Apparent Dementia
Data Reviewed
-
Labs: Labs Reviewed by me
[2023-04-10 12:21] LABS: Glucose - Point of Care 80 mg/dl (70-99)
--- NOTE | 2023-04-10 13:05 | CM ---
Reviewed chart. Spoke with attending. Patient medically cleared for discharge. Placed another call to the [facility] and explanation provided to frontload driver that patient has been discharged and therefore it is imperative that CM speak with someone.
Call was transferred to Nurse on DutyKrishna who answered and stated that she will review clinical with patient's RN. If there are concerns she will vocalize during report.
# For report [phone] (ask for nurse on duty)

Placed a call to patient's who was agreeable to discharge/transfer back as long as patient's RN is ok with his current baseline. Nurse will discuss in report. She had no concerns about discharge IMM in charge.
Medical Necessity and transfer sheet provided to [employer] operator.
Plan: Case management will continue to follow and assist with discharge planning/back to the [facility] as patient has been medically cleared.
[2023-04-10 15:00] VITALS: BP 118/68
--- NOTE | 2023-04-10 15:32 | W.DCSUMMARY ---
Discharge Summary
Discharge Data
Date of Admission: 04/05/23
Date of Discharge: 04/10/23
-
Pending Results: No
Hospital Course
Principal Diagnosis:
Unresponsive Episode, most likely due to dementia and delirium
Urinary tract infection with Staph epidermidis
Resolved DANIEL
Chronic Diagnoses:�
Essential Hypertension (prior to admission irbesartan and HCTZ discontinued this admission)
Diabetes Mellitus, Type II
Dementia
Benign prostate hypertrophy
Consultations:�
None
Procedures:�
None
Clinical course:�
This is a 77-year-old male, with past medical history as stated above, who presented with unresponsive episode.
Problem 1:
Unresponsive Episode, most likely due to dementia and delirium
This has resolved uneventfully.
Problem 2:
Acute Kidney Injury, resolved following IV fluid.
Problem 3:
UTI with staph epidermidis.
The patient received oral ciprofloxacin during his hospital stay, and was discharged with 6 more days.
As for the rest of his medical problems, they were stable during his hospital stay.
Discharge Plan
-
Patient Disposition: Usp/SNF
Discharge Diagnosis/Procedures: Acute Kidney Injury (resolved); 'Unresponsive Episode' most likely due to dementia and delirium; Urinary tract infection with staph epidermidis
Condition: Fair
Diet: As tolerated and Diabetic, Carb Controlled
Activity: As tolerated
Driving Restrictions: No driving
Stop these medications:: Irbesartan/HCTZ due to low blood pressure.
Activity Restrictions/Additional Instructions:
Your Coreg dose was decreased from 6.25 mg twice daily to 3.125 mg twice daily (with holding parameter)
Continue to take Cipro for 6 more days for your UTI.
Referrals:
Sarah Rivera, DO [Family Provider] - in less than 1 week
Prescriptions:
New
ciprofloxacin HCl 500 mg Tablet
500 mg PO BID 6 Days Qty: 12 0RF
carvedilol 3.125 mg Tablet
3.125 mg PO BID Qty: 60 0RF
Rx Instructions:
hold for SBP < 110
Continued
finasteride 5 mg Tablet
5 mg PO DAILY
ammonium lactate 12 % Lotion
1 applic TOPICAL BID
glipizide 2.5 mg Tablet Extended Release 24hr
2.5 mg PO DAILY
Rx Instructions:
04/05/2023, take with 10 mg for a total of 12.5 mg.
pioglitazone [Actos] 30 mg Tablet
30 mg PO DAILY
magnesium oxide 500 mg tablet
500 mg PO BID
loperamide 2 mg Capsule
2 mg PO Q4H PRN (Reason: diarrhea)
glipizide 10 mg Tablet Extended Release 24hr
10 mg PO DAILY
Rx Instructions:
04/05/2023, take with 2.5 mg for a total of 12.5 mg.
docusate sodium 100 mg Capsule
100 mg PO MOWEFR@0800
cholecalciferol (vitamin D3) 50 mcg (2,000 unit) Tablet
50 mcg PO BID
omega 4-une-yys-fish oil [Fish Oil] 1,000 mg (120 mg-180 mg) Capsule
1 cap PO DAILY
Desitin 40 % Paste
1 applic TOPICAL BID
melatonin 10 mg Tablet
10 mg PO HS PRN (Reason: insomnia)
Multi Complete Capsule
1 cap PO DAILY
pantoprazole 40 mg tablet,delayed release (DR/EC)
40 mg PO DAILY
repaglinide 1 MG tablet
1 mg PO TID
lorazepam 0.5 mg Tablet
0.5 mg PO BID Qty: 2 0RF
lorazepam 0.5 mg Tablet
0.5 mg PO Q6HPRN PRN (Reason: anxiety) Qty: 1 0RF
Discontinued
carvedilol 6.25 MG tablet
6.25 mg PO DAILY
irbesartan-hydrochlorothiazide 150-12.5 mg Tablet
1 tab PO DAILY
Discharge Orders:
Discharge Patient (As Directed); Ordered 04/10/23
Ordered By: Jodi Sandy
Discharge Date and Time
Discharge Date/Time: 04/10/23 16:52
== END 2023-04-10 16:52 | DRG 683 ==
LOC: 3 WEST ACU 12:59
PROVIDERS: Physician Assistant Medical; ADMITTING PHYSICIAN Internal Medicine; ATTENDING PHYSICIAN Internal Medicine; EMERGENCY PHYSICIAN Emergency Medicine; FAMILY PHYSICIAN Hospitalist
DX: N17.9 Acute kidney failure, unspecified (principal); F03.918 Unspecified dementia, unspecified severity, with other behavioral disturbance; F05 Delirium due to known physiological condition; N39.0 Urinary tract infection, site not specified; E11.9 Type 2 diabetes mellitus without complications; E78.00 Pure hypercholesterolemia, unspecified; R60.9 Edema, unspecified; N40.0 Benign prostatic hyperplasia without lower urinary tract symptoms; I10 Essential (primary) hypertension; B95.7 Other staphylococcus as the cause of diseases classified elsewhere; Z79.84 Long term (current) use of oral hypoglycemic drugs; Z88.2 Allergy status to sulfonamides; Z66 Do not resuscitate; Z78.1 Physical restraint status
CPT/HCPCS: 51798; 80048; 80053; 81003; 81015; 82962; 83036; 83735; 84443; 85025; 85027; 86803; 87070; 87086; 87147; 87186; 92526; 92610; 93005; 93970; 96360; 97162; 99285

== ENCOUNTER 2023-04-13 23:42 | Inpatient (IN) | payer OTHER, SELFPAY ==
[2023-04-13 20:53] VITALS: BP 128/83
--- NOTE | 2023-04-13 21:21 | ED.GENMED ---
History of Present Illness
General
Chief Complaint: Fall
Source: ambulance crew
Exam Limitations: dementia
Time Seen by Provider: 04/13/23 20:49
Nursing documentation reviewed up to this point in time: agreed with
Travel History
Have you had any contact with someone who has COVID-19?: Unable to Answer
Do you have any symptoms of coronavirus? Fever > 100 degrees, chills, cough, shortness of breath, sore throat, loss of taste or smell, muscle aches, or headache?: Unable to Answer
History of Present Illness
History of Present Illness:
77 yr old male w/ PMH of Alzheimers sent from [facility]. Pt was found on the floor by staff. Pt is at baseline dementia but EMS reports pt is weak.
I did speak with at home who does report she was told that patient was found on the floor. Patient is sleeping. He does mumble to his name but does not follow commands or answer questions.
It was documented that patient was admitted here 04/05 to 04/10 and is on Cipro.
Past History
Past History
ED Past Medical History: HTN, Hypercholesterolemia, NIDDM and Other (Dementia)
ED Past Surgical History: Other (Unknown)
Social History
Tobacco: Non-smoker
Alcohol: Occasional
Drug: None
Personal:
Living: halfway
Employment: Retired
Family History
Family History: Other
Review of Systems
Review of Systems
Allergies reviewed?: Yes
Unable to obtain full review of systems at this time due to: dementia
Other source history: halfway
Constitutional: Reports fatigue and other (pt w/ increasing weakness )
Respiratory: Reports no symptoms
Cardiac: Reports no symptoms
ABD/GI: Reports no symptoms
Musculoskeletal: Reports no symptoms
Skin: Reports no symptoms
Neurological: Reports no symptoms
Psychiatric: Reports no symptoms
Phy Exam
General Physical Exam
General Presentation: no apparent distress
General age: appears stated age
General Skin: warm and dry
General Mental: confused
General Hydration: dry mucous membranes
Cardiovascular Exam
Cardiovascular Exam: regular rate/rhythm, no murmur and normal peripheral pulses
Pulmonary Exam
Pulmonary Exam: lungs clear
Neurological Exam
Neurological Exam: other (confused mumbles does not follow commands )
Musculoskeletal Exam
Musculoskeletal Exam: full ROM
Skin Exam
Skin Exam: normal color and warm/dry
Psychiatric Exam
Psychiatric Exam: normal mood/affect
Course
Orders/Labs/Results
Orders:
Orders
04/13/23 21:[address]
CT Cervical Spine W/o Iv Contr Urgent
Comment:
Reason For Exam: trauma
CT Head W/o Iv Contrast Urgent
Comment:
Reason For Exam: trauma
04/13/23 21:25
IV Insert/Care/Rem.- Treatment PRN
04/13/23 21:26
Straight cath- Treatment ONCE
04/13/23 21:31
Complete Blood Count/With Diff Urgent
Comprehensive Metabolic Panel Urgent
Urinalysis Reflex To Culture Urgent
Date Specimen was Collected: 04/13/23
Time Specimen was Collected: 21:29
Urine Microscopic Reflex Cult Urgent
04/13/23 23:25
0.9% Sodium Chloride 1000 ml [Nss] 1,000 ml IV BOLUS
Abnormal Lab Results
04/13/23
21:31
RBC 3.78 L 10^6/uL
(4.70-6.10)
Hgb 12.8 L g/dL
(13.0-18.0)
Hct 36.1 L %
(39.0-52.0)
MCV 95.5 H fL
(80.0-94.0)
MCH 33.9 H pg
(27.0-31.0)
Abs Immat Gran (auto) 0.1 H 10^3/uL
(0-0.05)
Absolute Lymphs (auto) 0.6 L 10^3/uL
(1.2-3.4)
Absolute Monos (auto) 0.7 H 10^3/uL
(0.1-0.6)
Immature Gran % 0.8 H %
(0-0.5)
Neutrophils % 79.9 H %
(42.2-75.2)
Lymphocytes % 8.7 L %
(20.5-51.1)
Monocytes % 9.8 H %
(1.7-9.3)
BUN 46 H mg/dl
(9-20)
Creatinine 1.5 H mg/dL
(0.7-1.3)
Glucose 273 H mg/dl
(70-99)
Ur Occult Blood Reflex 3+ A
(Negative)
Leukocyte Esterase Rfl Trace A
(Negative)
Urine RBC >100 A /HPF
(0-2)
Urine Glucose 3+ A
(Negative)
04/13/23 21:31
04/13/23 21:31
Vital Signs
Initial and Last Documented VS:
Initial Vital Signs
Temp Pulse Resp BP Pulse Ox
97.9 F 91 18 128/83 96
04/13/23 20:53 04/13/23 20:53 04/13/23 20:53 04/13/23 20:53 04/13/23 20:53
Last Documented Vital Signs
Temp Pulse Resp BP Pulse Ox
97.9 F 95 21 109/62 96
04/13/23 20:53 04/13/23 21:52 04/13/23 21:52 04/13/23 23:00 04/13/23 20:53
MDM/Problems Addressed
Differential Diagnosis Includes:
Not limited to intracranial hemorrhage, weakness, dehydration, electrolyte abnormality, continued UTI, sepsis
MDM/Problems Addressed:
Patient is a 77-year-old male that was sent by halfway. Patient was found on the floor. Patient was just recently admitted April 05 and discharged April 10 for UTI renal insufficiency. Nurse at [facility] reports the patient is not improving
since being on antibiotics. He is documented that he was discharged on Cipro. Patient has history dementia and unable to give history. On exam patient does have redness to left forehead bilateral knees however ranges knees without difficulty. CT
head and cervical spine negative. I did speak with over the phone. Patient is afebrile here with a normal white count stable hemoglobin 12.8. Patient's BUN/creatinine back increased to 46 and 1.5.
Will admit for continued weakness
*Radiology
Radiology exam reviewed: radiology read reviewed
*Pulse Oximetry
Patient hypoxic: no
*Critical Care Note
Total Time (30-74mins, 75-104mins- exclusive of procedures): Not Applicable
Data Reviewed
Review of Other/Old Records Reveals: Discharge Summary
ED Attending Note
-
Portions of this chart may have been created with voice recognition software.� Occasional wrong word or��sound alike� substitutions may have occurred due to the inherent limitations of voice recognition software.
Discharge Plan
Departure
Patient Disposition: Admit
Date of Disposition: 04/13/23
Time of Disposition: 23:26
Admit to: Med/Surg
Admit to doctor: ac
Presentation/result/management discussed w/ accepting MD/DO: Hospitalist
Patient with high blood pressure during this ER visit?: No
Condition: Fair
Covid-19: Not Applicable
Discharge Problem:
Weakness, DANIEL (acute kidney injury)
Interventions
Interventions:
*Risk Screen - Suicide Last Done: 04/13/23 20:53
*General Assessment Last Done: 04/13/23 20:53
*Neglect/Abuse Screening Last Done: 04/13/23 20:53
*ED COVID-19 Vaccine History Last Done: 04/13/23 20:53
ED-Musculoskeletal Assessment Last Done: 04/13/23 21:14
ED- Neurological Assessment Last Done: 04/13/23 20:57
ED-Skin Assessment Last Done: 04/13/23 20:57
[2023-04-13 21:42] LABS: % Basophils 0.4 % (0-2); % Eosinophils 0.4 % (0-6); % Immature Granulocytes 0.8 % (0-0.5); % Lymphocytes 8.7 % (20.5-51.1); % Monocytes 9.8 % (1.7-9.3); % Neutrophils 79.9 % (42.2-75.2); Absolute Immature Granulocytes 0.1 10^3/uL (0-0.05); Absolute Lymphocytes 0.6 10^3/uL (1.2-3.4); Absolute Monocytes 0.7 10^3/uL (0.1-0.6); Absolute Neutrophils 5.8 10^3/uL (1.4-6.5); Hematocrit 36.1 % (39.0-52.0); Hemoglobin 12.8 g/dL (13.0-18.0); Mean Corp Hgb Conc. 35.5 g/dL (33.0-37.0); Mean Corpuscular Hgb 33.9 pg (27.0-31.0); Mean Corpuscular Volume 95.5 fL (80.0-94.0); Mean Platelet Volume 9.4 fL (7.4-10.4); Nucleated Red Blood Cells % 0 % (-); Platelet Count 204 10^3/uL (130-400); Red Blood Cell Count 3.78 10^6/uL (4.70-6.10); Red Cell Dist. Width 13.6 % (11.5-14.5); White Blood Cell Count 7.3 10^3/uL (4.8-10.8)
[2023-04-13 21:55] LABS: ALT (SGPT) 44 U/L (0-50); AST (SGOT) 40 U/L (17-59); Albumin 3.6 g/dl (3.5-5.0); Alkaline Phosphatase 58 U/L (38-126); Blood Urea Nitrogen 46 mg/dl (9-20); Calcium 9.5 mg/dl (8.4-10.2); Carbon Dioxide 25 mmol/L (22-30); Chloride 104 mmol/L (98-107); Glucose 273 mg/dl (70-99); Potassium 4.6 mmol/L (3.5-5.1); Sodium 139 mmol/L (135-145); Total Protein 6.3 g/dl (6.3-8.2); eGFR 47.65
[2023-04-13 21:57] LABS: Urine Albumin Trace (Neg - Trace); Urine Bilirubin Negative (Negative); Urine Character Clear (Clear); Urine Color Yellow; Urine Glucose 3+ (Negative); Urine Ketone Negative (Negative); Urine Leukocyte Trace (Negative); Urine Nitrite Negative (Negative); Urine Occult Blood 3+ (Negative); Urine Urobilinogen Negative (Neg - 1+)
[2023-04-13 22:05] LABS: Urine Squamous Cell 0-2 /LPF (Few)
[2023-04-13 22:06] LABS: Urine Red Blood Cell >100 /HPF (0-2); Urine White Cell 0-2 /HPF (0-5)
[2023-04-13 22:31] VITALS: BP 98/54
[2023-04-13 23:00] VITALS: BP 109/62
[2023-04-13] MEDS: NSS 1000 IV (23:36)
--- NOTE | 2023-04-13 23:53 | HPS.HSE ---
Family Physician
-
Family Physician:
Chief Complaint
-
weakness
History of Present Illness
77-year-old male past medical history of hypertension, diabetes, dementia, BPH, UTI with Staph epidermidis, presenting from [facility] because he was found on the floor by staff. Patient is at baseline dementia but EMS noted patient was weak.
Patient was just admitted from April 05 to April for UTI and DANIEL. As per detention patient did not improve since being on ciprofloxacin.
Medical History
Past Medical History
Past Medical History: Reports Other ( hypertension, diabetes, dementia, BPH, UTI with Staph epidermidis)
Past Surgical History: Reports None
Social History
Tobacco: Non-smoker
Alcohol: None
Drug: None
Family History
Family History: Not pertinent
Allergies / Home Medications
Allergies reflects when Allergies were last updated in [facility].
Home Medications with original date entered in [facility]
Allergy/Medication List:
Allergies
Allergy/AdvReac Type Severity Reaction Status Date / Time
Sulfa (Sulfonamide Allergy per NH Verified 06/08/22 10:05
Antibiotics) records
Home Medications
finasteride 5 mg tablet 5 mg PO DAILY Urinary issue 03/16/17
ammonium lactate 12 % lotion 1 applic topical BID both feet 04/04/22
glipizide 2.5 mg tablet, extended release 24 hr 2.5 mg PO DAILY 06/08/22
pioglitazone 30 mg tablet (Actos) 30 mg PO DAILY diabetes 06/08/22
magnesium oxide 500 mg PO HS Supplement 03/22/23
Multi Complete Capsule 1 cap PO DAILY Supplement 04/05/23
cholecalciferol (vitamin D3) 50 mcg (2,000 unit) tablet 50 mcg PO BID Supplement 04/05/23
docusate sodium 100 mg capsule 100 mg PO MOWEFR@0800 Constipation 04/05/23
glipizide 10 mg tablet, extended release 24 hr 10 mg PO DAILY Diabetes 04/05/23
loperamide 2 mg capsule 2 mg PO Q4H PRN diarrhea 04/05/23
melatonin 10 mg tablet 10 mg PO HS PRN insomnia 04/05/23
omega 2-zrf-kxd-fish oil 1,000 mg (120 mg-180 mg) capsule (Fish Oil) 1 cap PO DAILY Supplement 04/05/23
pantoprazole 40 mg tablet,delayed release 40 mg PO DAILY Gastrointestinal Issue 04/05/23
repaglinide 1 mg tablet 1 mg PO TID@0800,1200,1700 diabetes 04/05/23
zinc oxide-cod liver oil 40 % topical paste (Desitin) 1 applic topical BID apply to buttocks 04/05/23
carvedilol 3.125 mg tablet 3.125 mg PO BID #60 tabs 04/10/23
ciprofloxacin HCl 500 mg tablet 500 mg PO BID 6 days #12 tabs 04/10/23
lorazepam 0.5 mg tablet 0.5 mg PO BID anxiety #2 tabs 04/10/23
lorazepam 0.5 mg tablet 0.5 mg PO Q6HPRN PRN anxiety #1 tab 04/10/23
irbesartan 150 mg-hydrochlorothiazide 12.5 mg tablet 1 tab PO DAILY 04/13/23
magnesium oxide 500 mg PO DAILY 04/13/23
Review of Systems
-
History Source: Patient
A 12 point ROS was completed and negative except as noted: No
Physical Exam
Vital Signs
Vital Signs
Temp Pulse Resp BP Pulse Ox
97.9 F 95 21 109/62 96
04/13/23 20:53 04/13/23 21:52 04/13/23 21:52 04/13/23 23:00 04/13/23 20:53
Physical Exam
General: Well Developed, Well Nourished and No Apparent Distress
HEENT: NormoCephalic, Moist mucous membranes and Atraumatic
Respiratory: Clear
Cardiac: S1/S2 and Regular Rhythm; No Murmur or Rub
GI: Soft, Non Tender, Non Distended and Normal Bowel Sounds; No Organomegaly
Rectal: Deferred by Provider
Musculoskeletal: No Clubbing, No Cyanosis and No Edema
Skin: No Rash
Neuro: Nonfocal/grossly intact
Laboratory Results
-
04/13/23 21:31
04/13/23 21:31
Laboratory Results
Total Bilirubin 1.0 mg/dl (0.2-1.3) 04/13/23 21:
AST 40 U/L (17-59) 04/13/23 21:
ALT 44 U/L (0-50) 04/13/23 21:
Alkaline Phosphatase 58 U/L (38-126) 04/13/23 21:
Data Reviewed
-
Lab Data: Labs Reviewed by me
Old Records: Reviewed
Impression/Plan
-
IMPRESSION:
PLAN:
# DANIEL possibly prerenal versus obstructive uropathy
# Microscopic hematuria
# History of BPH
-Creatinine 1.5 from 1.1
-IV fluids
-Urinalysis shows microscopic hematuria without evidence of UTI
-Bladder scan protocol
-Hold irbesartan/hydrochlorothiazide
-Check renal ultrasound
-Continue finasteride
# Recent Staph epidermidis UTI
-Continue ciprofloxacin for 3 more days
# Hyperglycemia
#Type 2 diabetes
-Hold oral diabetic medications
-Insulin sliding scale
Essential hypertension
-Continue Coreg
Dementia
Anxiety/depression
-Continue Ativan
Full code
DVT prophylaxis�SCDs
Regular diet
[2023-04-14 01:16] VITALS: BMI 25.2
[2023-04-14 01:18] VITALS: BP 113/62
--- NOTE | 2023-04-14 01:18 | PTCARENOTE ---
pt arrived from ed. was pulled over. aaox1- self, VSS, pt uncooperative. came up on IVFs NS and with a condom cath #21. see MAR and assessment for further details. call lucero within reach.
[2023-04-14] MEDS: NSS 1000 IV ×2 (01:38→13:45)
[2023-04-14 06:52] LABS: % Basophils 0.4 % (0-2); % Eosinophils 0.8 % (0-6); % Lymphocytes 18.3 % (20.5-51.1); % Monocytes 15.1 % (1.7-9.3); % Neutrophils 64.4 % (42.2-75.2); Absolute Immature Granulocytes 0.1 10^3/uL (0-0.05); Absolute Lymphocytes 0.9 10^3/uL (1.2-3.4); Absolute Monocytes 0.8 10^3/uL (0.1-0.6); Absolute Neutrophils 3.2 10^3/uL (1.4-6.5); Hematocrit 33.7 % (39.0-52.0); Hemoglobin 11.6 g/dL (13.0-18.0); Mean Corp Hgb Conc. 34.4 g/dL (33.0-37.0); Mean Corpuscular Hgb 33.1 pg (27.0-31.0); Mean Corpuscular Volume 96.3 fL (80.0-94.0); Mean Platelet Volume 9.3 fL (7.4-10.4); Nucleated Red Blood Cells % 0 % (-); Platelet Count 203 10^3/uL (130-400); Red Cell Dist. Width 13.7 % (11.5-14.5)
[2023-04-14 07:00] VITALS: BP 120/67
[2023-04-14 07:17] LABS: ALT (SGPT) 42 U/L (0-50); AST (SGOT) 41 U/L (17-59); Albumin 3.4 g/dl (3.5-5.0); Alkaline Phosphatase 60 U/L (38-126); Blood Urea Nitrogen 34 mg/dl (9-20); Calcium 8.7 mg/dl (8.4-10.2); Carbon Dioxide 28 mmol/L (22-30); Chloride 110 mmol/L (98-107); Estimated Creatinine Clearance 49 ml/min; Glucose 133 mg/dl (70-99); Potassium 4.2 mmol/L (3.5-5.1); Sodium 140 mmol/L (135-145); Total Bilirubin 0.9 mg/dl (0.2-1.3); eGFR 51.77
[2023-04-14] MEDS: PROTONIX 40 MG PO (08:42)
[2023-04-14] MEDS: CIPRO 500 MG PO (08:42)
[2023-04-14] MEDS: MAGNESIUM OXIDE 500 MG PO (08:42)
[2023-04-14] MEDS: COLACE 100 MG PO (08:43)
[2023-04-14] MEDS: PROSCAR 5 MG PO (08:43)
[2023-04-14] MEDS: COREG 3.125 MG PO ×2 (08:43→20:41)
[2023-04-14] MEDS: LAC HYDRIN, AM LACTIN LOTION 1 APPLIC TOPICAL ×2 (08:43→20:40)
[2023-04-14] MEDS: VITAMIN D3 (cholecalciferol) 50 MCG PO ×2 (08:43→20:40)
[2023-04-14] MEDS: ATIVAN 0.5 MG PO ×2 (08:43→20:40)
[2023-04-14] MEDS: NOVOLOG FLEXPEN-LOW RESISTANCE SC (08:47)
[2023-04-14 08:48] LABS: Glucose - Point of Care 114 mg/dl (70-99)
[2023-04-14 11:45] LABS: Glucose - Point of Care 174 mg/dl (70-99)
[2023-04-14] MEDS: NOVOLOG FLEXPEN-LOW RESISTANCE 1 UNITS SC (12:11)
--- NOTE | 2023-04-14 13:12 | W.PN.HOSP.TC ---
Addendum entered and electronically signed by Asif Cotton MD 04/14/23 15:14:
Patient seen and examined
Discussed with nursing
Discussed with resident.
Impression:
Acute kidney injury secondary to dehydration/diuretics.
Improving with IV hydration
Continue hold diuretics
Bladder scan.
Renal sonogram given microhematuria.
Recent UTI.
Urine culture with strep epidermidis, unlikely pathogen
Currently afebrile with normal white count
Hold Cipro and monitor closely
Type 2 diabetes
Update hemoglobin A1c
With decreased GFR, hold glipizide preventing hypoglycemia
Basal bolus protocol.
Advanced dementia
Recurrent falls suspect secondary to cognitive status.
Imaging/CT head with no acute abnormalities.
Check orthostatic vitals.
Physical therapy assessment.
May require long-term placement.
Original Note:
Today's Communication/Plan
-
.
Assessment / Plan
Assessment / Plan
IMPRESSION:
DANIEL
Microscopic hematuria
Recent staph epidermidis UTI
Type II DM
Essential hypertension
Dementia
Anxiety/depression
PLAN:
# DANIEL
Prerenal versus obstructive
History of BPH
Creatinine 1.4, BUN 34
Urinalysis shows microscopic hematuria , RBC > 100
IV fluids
Renal ultrasound pending
Bladder scan protocol
Hold irbesartan/hydrochlorothiazide
Continue finasteride
# Recent UTI during previous admission
No evidence of ongoing UTI currently
Discontinue ciprofloxacin
# Type II DM
Glipizide on hold
Sliding scale insulin
# Essential hypertension
Continue Coreg
# Anxiety/depression
Continue Ativan
# Dementia
Reorientation
DVT prophylaxis�SCD
Anticipated Discharge: 24 - 48 hours
Subjective/Interval History
-
Date of Service: April 14, 2023
Patient is at his baseline mental status( dementia). Could not elicit proper history.
Objective Data
-
Labs:
Laboratory Results
04/14/23
06:38
WBC 5.0
Hgb 11.6 L
Hct 33.7 L
Plt Count 203
Sodium 140
Potassium 4.2
Chloride 110 H
Carbon Dioxide 28
BUN 34 H
Creatinine 1.4 H
Glucose 133 H
Calcium 8.7
Total Bilirubin 0.9
AST 41
ALT 42
Alkaline Phosphatase 60
Vital Signs:
Vital Signs
Temp Pulse Resp BP Pulse Ox
97.8 F 88 17 120/67 97
04/14/23 07:00 04/14/23 07:00 04/14/23 07:00 04/14/23 07:00 04/14/23 07:00
Review of Systems
-
Unable to obtain full review of systems at this time due to: Dementia
Physical Exam
-
General: Well Developed and Well Nourished
HEENT: Normocephalic and Atraumatic
Respiratory: Clear to Auscultation
Cardiac: Regular Rhythm and S1/S2
GI: Soft, Nontender, Nondistended and Normal Bowel Sounds
Genito-urinary: No Costovertebral Tender
Skin: Warm and Dry
Psych: Apparent Dementia
[2023-04-14 14:12] VITALS: BP 114/64; PULSE 80; O2SAT 97
[2023-04-14 14:14] VITALS: BP 114/64; PULSE 80; O2SAT 97
[2023-04-14 15:04] VITALS: BP 112/56
--- NOTE | 2023-04-14 16:30 | CM ---
Reviewed chart, per previous conversation with patient's ,
patient lives in the [facility] of the [facility]. He is dependent with all ADLs, self care, bathing, dressing and toileting. Per his he is a max assist of 2 for transfers and bed mobility.
He needs assistance for grooming and eating.
Patient's PCP is Dr. Sarah Rivera
He gets his medications through [facility] or [facility].
Plan: Case management will continue to follow and assist with discharge planning. Tentative plan is for patient to return back to the [facility].
--- NOTE | 2023-04-14 16:45 | PTCARENOTE ---
Pt is alert to self only. Denies any pain. Tolerating diet well and eating 90% of his meals. Pt hard to arouse at times, but when awake is very alert and does converse. Pt incontinent. Bladder scanned today for 200ml. VSS. Pt currently resting in
bed. Bed alarm on for safety. Call lucero is within reach.
[2023-04-14 16:59] LABS: Glucose - Point of Care 233 mg/dl (70-99)
[2023-04-14] MEDS: NOVOLOG FLEXPEN-LOW RESISTANCE 2 UNITS SC (17:11)
[2023-04-14 21:06] LABS: Glucose - Point of Care 135 mg/dl (70-99)
[2023-04-14] MEDS: MAGNESIUM OXIDE PO (22:50)
[2023-04-14 23:15] VITALS: BP 135/70
[2023-04-15] MEDS: NSS 1000 IV ×2 (06:42→17:32)
[2023-04-15 06:58] LABS: % Eosinophils 3.8 % (0-6); % Immature Granulocytes 0.5 % (0-0.5); % Lymphocytes 31.7 % (20.5-51.1); % Monocytes 15.2 % (1.7-9.3); % Neutrophils 47.8 % (42.2-75.2); Absolute Eosinophils 0.2 10^3/uL (0-0.7); Absolute Lymphocytes 1.3 10^3/uL (1.2-3.4); Absolute Monocytes 0.6 10^3/uL (0.1-0.6); Absolute Neutrophils 1.9 10^3/uL (1.4-6.5); Hematocrit 33.1 % (39.0-52.0); Hemoglobin 11.3 g/dL (13.0-18.0); Mean Corp Hgb Conc. 34.1 g/dL (33.0-37.0); Mean Corpuscular Hgb 33.4 pg (27.0-31.0); Mean Corpuscular Volume 97.9 fL (80.0-94.0); Mean Platelet Volume 9.3 fL (7.4-10.4); Nucleated Red Blood Cells % 0 % (-); Platelet Count 181 10^3/uL (130-400); Red Blood Cell Count 3.38 10^6/uL (4.70-6.10); Red Cell Dist. Width 13.5 % (11.5-14.5); White Blood Cell Count 3.9 10^3/uL (4.8-10.8)
[2023-04-15 07:00] VITALS: BP 131/99
[2023-04-15 07:15] LABS: Blood Urea Nitrogen 25 mg/dl (9-20); Calcium 8.8 mg/dl (8.4-10.2); Carbon Dioxide 25 mmol/L (22-30); Chloride 107 mmol/L (98-107); Estimated Creatinine Clearance 68 ml/min; Glucose 127 mg/dl (70-99); Potassium 4.1 mmol/L (3.5-5.1); Sodium 139 mmol/L (135-145); eGFR > 60.00
[2023-04-15 08:02] LABS: Glucose - Point of Care 116 mg/dl (70-99)
--- NOTE | 2023-04-15 08:48 | W.PN.HOSP.TC ---
Today's Communication/Plan
-
Restart ARB continue to hold thiazide diuretic
Still awaiting renal ultrasound
Think we can stop IV fluids and monitor oral intake
Assessment / Plan
Assessment / Plan
IMPRESSION:
DANIEL
Microscopic hematuria
Recent staph epidermidis UTI
Type II DM
Essential hypertension
Dementia
Anxiety/depression
PLAN:
# DANIEL now resolved chemically
Prerenal versus obstructive
History of BPH
Creatinine 1.4, BUN 34>>> 1.0
Urinalysis shows microscopic hematuria , RBC > 100
IV fluids can be discontinued at this point monitor intake
Renal ultrasound pending still
Bladder scan protocol
Hold irbesartan/hydrochlorothiazide on admission
Look to restart irbesartan in the absence of thiazide
Continue finasteride
# Recent UTI during previous admission
No evidence of ongoing UTI currently
Discontinue ciprofloxacin
# Type II DM
Glipizide on hold
Sliding scale insulin
# Essential hypertension
Continue Coreg
# Anxiety/depression
Continue Ativan
# Dementia
Reorientation
DVT prophylaxis�SCD
Anticipated Discharge: Within 24 hours
Subjective/Interval History
-
Date of Service: April 15, 2023
Patient is nonverbal with advanced dementia. No acute distress
Objective Data
-
Labs:
Laboratory Results
04/15/23
06:49
WBC 3.9 L
Hgb 11.3 L
Hct 33.1 L
Plt Count 181
Sodium 139
Potassium 4.1
Chloride 107
Carbon Dioxide 25
BUN 25 H
Creatinine 1.0
Glucose 127 H
Calcium 8.8
Vital Signs:
Vital Signs
Temp Pulse Resp BP Pulse Ox
97.9 F 57 17 131/99 98
04/15/23 07:00 04/15/23 07:00 04/15/23 07:00 04/15/23 07:00 04/15/23 07:00
I&O
04/14/23 04/15/23 04/16/23
06:59 06:59 06:59
Intake Total 690 / 690
Balance 690 / 690
Review of Systems
-
All other systems: Not reviewed unless documented
Physical Exam
-
General: No Apparent Distress
HEENT: Normocephalic
Respiratory: Clear to Auscultation
Cardiac: Regular Rhythm
GI: Soft and Nontender
Skin: Warm
Psych: Calm, Confused and Apparent Dementia; Negative Intact Judgement/Insight
Data Reviewed
-
Total Time Spent with Patient (in minutes): 45
Labs: Labs Reviewed by me (Chemistries reviewed and creatinine now to baseline)
[2023-04-15] MEDS: NOVOLOG FLEXPEN-LOW RESISTANCE SC ×2 (09:20→11:37)
[2023-04-15] MEDS: ATIVAN 0.5 MG PO ×2 (09:24→20:01)
[2023-04-15] MEDS: VITAMIN D3 (cholecalciferol) 50 MCG PO ×2 (09:24→20:01)
[2023-04-15] MEDS: LAC HYDRIN, AM LACTIN LOTION 1 APPLIC TOPICAL ×2 (09:24→20:07)
[2023-04-15] MEDS: COREG 3.125 MG PO ×2 (09:24→20:01)
[2023-04-15] MEDS: PROSCAR 5 MG PO (09:24)
[2023-04-15] MEDS: AVAPRO 150 MG PO (09:25)
[2023-04-15] MEDS: PROTONIX 40 MG PO (09:25)
[2023-04-15] MEDS: MAGNESIUM OXIDE 500 MG PO ×2 (09:30→21:46)
[2023-04-15 11:32] LABS: Glucose - Point of Care 113 mg/dl (70-99)
[2023-04-15 14:54] VITALS: BP 107/56
--- NOTE | 2023-04-15 15:24 | CM ---
CM called to personal care at [facility]; Teri CANTOR to confirm ability of patient to return/functional needs at personal care. Patient was able to walk prior to admission with one person assist, but they did provide 2 persons due to episodes of
patient leaning forward or backward. Per nurse, patient was working on getting patient a private duty male nurse. IF patient has private aide and able to walk with 2 person assist, possible patient can return however, according to nurse in
memory care, facility will need to have updated clinicals to review and confirm ability to accept patient prior to his discharge back to facility. Per nursing told facility that she was on vacation and would return to Monday to discuss
options. CM will continue to follow for discharge planning needs.
Plan: person care pending assessments; watch for SNF recommendations
[2023-04-15 16:29] LABS: Glucose - Point of Care 228 mg/dl (70-99)
[2023-04-15] MEDS: NOVOLOG FLEXPEN-LOW RESISTANCE 2 UNITS SC (17:33)
[2023-04-15 21:07] LABS: Glucose - Point of Care 175 mg/dl (70-99)
[2023-04-15 23:00] VITALS: BP 109/67
[2023-04-16 07:21] LABS: Glucose - Point of Care 125 mg/dl (70-99)
[2023-04-16 07:25] VITALS: BP 124/59
[2023-04-16 07:37] LABS: Blood Urea Nitrogen 17 mg/dl (9-20); Calcium 8.8 mg/dl (8.4-10.2); Carbon Dioxide 28 mmol/L (22-30); Chloride 108 mmol/L (98-107); Estimated Creatinine Clearance 68 ml/min; Glucose 134 mg/dl (70-99); Potassium 4.1 mmol/L (3.5-5.1); Sodium 138 mmol/L (135-145); eGFR > 60.00
[2023-04-16] MEDS: NOVOLOG FLEXPEN-LOW RESISTANCE SC (07:54)
[2023-04-16] MEDS: PROTONIX 40 MG PO (07:59)
[2023-04-16] MEDS: ATIVAN 0.5 MG PO ×2 (08:00→20:26)
[2023-04-16] MEDS: VITAMIN D3 (cholecalciferol) 50 MCG PO ×2 (08:00→20:25)
[2023-04-16] MEDS: AVAPRO 150 MG PO (08:00)
[2023-04-16] MEDS: COREG 3.125 MG PO ×2 (08:00→20:26)
[2023-04-16] MEDS: PROSCAR 5 MG PO (08:00)
[2023-04-16] MEDS: LAC HYDRIN, AM LACTIN LOTION 1 APPLIC TOPICAL ×2 (08:01→20:26)
[2023-04-16] MEDS: MAGNESIUM OXIDE 500 MG PO ×2 (08:01→21:55)
--- NOTE | 2023-04-16 08:30 | W.PN.HOSP.TC ---
Today's Communication/Plan
-
Monitor status of bladder protocol and measure retention if any
If significant would add tamsulosin
Renal function has stabilized after withholding diuretics
Tolerating ARB
Would continue to withhold thiazide diuretic for now
Case management discussions yesterday would not take patient until at least Monday to [facility]
Assessment / Plan
Assessment / Plan
IMPRESSION:
DANIEL
Microscopic hematuria
Recent staph epidermidis UTI
Type II DM
Essential hypertension
Dementia
Anxiety/depression
PLAN:
# DANIEL now resolved chemically
Prerenal versus obstructive
History of BPH
Creatinine 1.4, BUN 34>>> 1.0
Urinalysis shows microscopic hematuria , RBC > 100
IV fluids can be discontinued at this point monitor intake
Renal ultrasound showed indented bladder wall and thickened with underlying BPH and possible bladder outlet obstruction
Bladder scan protocol/to continue
Hold irbesartan/hydrochlorothiazide on admission
Look to restart irbesartan in the absence of thiazide
Continue finasteride/may want to add tamsulosin
# Recent UTI during previous admission
No evidence of ongoing UTI currently
Discontinue ciprofloxacin
# Type II DM
Glipizide on hold
Sliding scale insulin
# Essential hypertension
Continue Coreg
# Anxiety/depression
Continue Ativan
# Dementia
Reorientation
DVT prophylaxis�SCD
Anticipated Discharge: Within 24 hours
Subjective/Interval History
-
Date of Service: April 16, 2023
Patient remains disoriented and confused and poor historian in no acute distress unclear whether he is continent of urine or having retention
Objective Data
-
Labs:
Laboratory Results
04/16/23
06:27
Sodium 138
Potassium 4.1
Chloride 108 H
Carbon Dioxide 28
BUN 17
Creatinine 1.0
Glucose 134 H
Calcium 8.8
Vital Signs:
Vital Signs
Temp Pulse Resp BP Pulse Ox
98.7 F 64 14 124/59 99
04/16/23 07:25 04/16/23 07:25 04/16/23 07:25 04/16/23 07:25 04/16/23 07:25
I&O
04/15/23 04/16/23 04/17/23
06:59 06:59 06:59
Intake Total 690 / 690 300 / 300
Balance 690 / 690 300 / 300
Review of Systems
-
Unable to obtain full review of systems at this time due to: Dementia
History Source: Patient
Physical Exam
-
General: No Apparent Distress
HEENT: Normocephalic
Respiratory: Clear to Auscultation
Cardiac: Regular Rhythm
GI: Soft, Nontender and Nondistended
Neuro: Awake
Psych: Confused and Apparent Dementia
Data Reviewed
-
Total Time Spent with Patient (in minutes): 56
Medical Tests (Nuc Med, Echo etc): Image personally visualized and interpreted and Report Reviewed by me (Renal ultrasound showed evidence of bladder thickening and BPH with possible bladder outlet obstruction)
Labs: Labs Reviewed by me
[2023-04-16] MEDS: FLOMAX 0.400000000000000022 MG PO (10:15)
[2023-04-16 11:55] LABS: Glucose - Point of Care 190 mg/dl (70-99)
[2023-04-16] MEDS: NOVOLOG FLEXPEN-LOW RESISTANCE 1 UNITS SC (12:32)
[2023-04-16 15:45] VITALS: BP 144/82
[2023-04-16 16:51] LABS: Glucose - Point of Care 221 mg/dl (70-99)
[2023-04-16] MEDS: NOVOLOG FLEXPEN-LOW RESISTANCE 2 UNITS SC (17:12)
--- NOTE | 2023-04-16 17:16 | PTCARENOTE ---
in to visit pt during shift. noted taking a photo of his lunch tray. informed that Pt refuses many things including being fed at times, repositioned, and given hygiene care. stated 'well he doesn't know'. informed that we do
not feed people who are yelling at us not to.
--- NOTE | 2023-04-16 17:34 | PTCARENOTE ---
Updated after speaking with assigned tech to Pt, that the Pt ate 100% of breakfast and refused lunch. currently feeding Pt dinner.
[2023-04-16 22:16] LABS: Glucose - Point of Care 257 mg/dl (70-99)
[2023-04-16 23:15] VITALS: BP 137/83
[2023-04-17 07:30] VITALS: BP 140/72
[2023-04-17 07:36] LABS: Blood Urea Nitrogen 18 mg/dl (9-20); Carbon Dioxide 24 mmol/L (22-30); Chloride 108 mmol/L (98-107); Estimated Creatinine Clearance 68 ml/min; Glucose 139 mg/dl (70-99); Potassium 4.3 mmol/L (3.5-5.1); Sodium 136 mmol/L (135-145); eGFR > 60.00
[2023-04-17 08:12] LABS: Glucose - Point of Care 126 mg/dl (70-99)
[2023-04-17] MEDS: NOVOLOG FLEXPEN-LOW RESISTANCE SC (08:13)
[2023-04-17] MEDS: FLOMAX 0.400000000000000022 MG PO (08:14)
[2023-04-17] MEDS: VITAMIN D3 (cholecalciferol) 50 MCG PO ×2 (08:14→21:09)
[2023-04-17] MEDS: PROTONIX 40 MG PO (08:14)
[2023-04-17] MEDS: MAGNESIUM OXIDE 500 MG PO ×2 (08:14→21:07)
[2023-04-17] MEDS: AVAPRO 150 MG PO (08:14)
[2023-04-17] MEDS: PROSCAR 5 MG PO (08:15)
[2023-04-17] MEDS: LAC HYDRIN, AM LACTIN LOTION 1 APPLIC TOPICAL ×2 (08:15→21:07)
[2023-04-17] MEDS: COLACE 100 MG PO (08:15)
[2023-04-17] MEDS: ATIVAN 0.5 MG PO ×2 (08:15→21:03)
[2023-04-17] MEDS: COREG 3.125 MG PO (08:15)
--- NOTE | 2023-04-17 11:26 | W.PN.HOSP.TC ---
Addendum entered and electronically signed by Asif Cotton MD 04/17/23 16:23:
Patient seen and examined
Discussed with resident
Impression/plan:
Patient with advanced dementia presented with fall
DANIEL resolved with hydration. HCTZ discontinued. Reintroduced to angiotensin receptor maurice. Monitor blood pressure trend specially with addition of Flomax.
BPH.
Microhematuria
Renal sonogram noted. Concern for bladder outlet obstruction, although no evidence of retention over this admission. Creatinine remained stable with hydration.
Recent UTI, currently off antibiotics. Monitor closely.
Discharge planning to rehab with further assessment given advanced dementia and possible requirement for long-term care.
Original Note:
Today's Communication/Plan
-
Bladder scan protocol/to continue
Hold irbesartan/hydrochlorothiazide on admission
Look to restart irbesartan in the absence of thiazide pt's increasing BP
Continue finasteride/may want to add tamsulosin
Assessment / Plan
Assessment / Plan
IMPRESSION:
DANIEL
Microscopic hematuria
Recent staph epidermidis UTI
Type II DM
Essential hypertension
Dementia
Anxiety/depression
PLAN:
# DANIEL now resolved chemically
Likely prerenal versus obstructive
History of BPH
Creatinine 1.5,>>> 1.0
BUN 46>>>18
Urinalysis shows microscopic hematuria , RBC > 100
Monitor I&O
Renal ultrasound showed simple cyst in right kidney, indented bladder wall and thickened with underlying BPH and possible bladder outlet obstruction, no hydronephrosis.
Continue bladder scan protocol.
Hold irbesartan/hydrochlorothiazide on admission
Look to restart irbesartan in the absence of thiazide
Continue finasteride/may want to add tamsulosin
# Recent UTI during previous admission
No evidence of ongoing UTI currently
Discontinue ciprofloxacin
# Type II DM
Glipizide on hold
Sliding scale insulin
# Essential hypertension
Continue Coreg
# Anxiety/depression
Continue Ativan
# Dementia
Reorientation
DVT prophylaxis�SCD
Anticipated Discharge: 24 - 48 hours
Subjective/Interval History
-
Date of Service: April 17, 2023
Objective Data
-
Labs:
Laboratory Results
04/17/23
06:18
Sodium 136
Potassium 4.3
Chloride 108 H
Carbon Dioxide 24
BUN 18
Creatinine 1.0
Glucose 139 H
Calcium 9.0
Vital Signs:
Vital Signs
Temp Pulse Resp BP Pulse Ox
98.5 F 81 16 140/72 95
04/17/23 07:30 04/17/23 07:30 04/17/23 07:30 04/17/23 07:30 04/17/23 07:30
I&O
04/16/23 04/17/23 04/18/23
06:59 06:59 06:59
Intake Total 300 / 300 120 / 120
Balance 300 / 300 120 / 120
Review of Systems
-
Unable to obtain full review of systems at this time due to: Dementia
History Source: Patient
All other systems: Reviewed and negative
Physical Exam
-
General: Well Developed, Well Nourished and No Apparent Distress
HEENT: Normocephalic
Respiratory: Clear to Auscultation
Cardiac: Regular Rhythm and S1/S2; Negative Murmur or Rub
GI: Soft, Nontender, Nondistended and Normal Bowel Sounds; Negative Organomegaly
Rectal: Deferred by Provider
Neuro: Awake
Psych: Confused and Apparent Dementia
Data Reviewed
-
Diagnostic Radiology: Image personally visualized and interpreted, Report Reviewed by me and Discussed with Physician
CT Scan: Image personally visualized and interpreted, Report Reviewed by me and Discussed with Physician
Ultrasound: Image personally visualized and interpreted, Report Reviewed by me and Discussed with Physician
Labs: Labs Reviewed by me and Discussed with Physician
Old Records: Reviewed
[2023-04-17 11:49] LABS: Glucose - Point of Care 232 mg/dl (70-99)
[2023-04-17] MEDS: NOVOLOG FLEXPEN-LOW RESISTANCE 2 UNITS SC (12:28)
--- NOTE | 2023-04-17 13:09 | CM ---
Addendum entered by SELENA Peraza 04/17/23 14:20:
Placed a call to patient's x3 however there was no answer and no voice mail. Will attempt again.
Original Note:
Reviewed chart, spoke with attending who stated that patient is medically stable for discharge. Placed a call to patient's to update. She expressed to keep her updated as phone call has to be made to the [facility] to confirm acceptance back to the
facility.
Placed call to the [facility] and spoke with Brandan patient's RN. Reviewed PT. Per Brandan, they will not be able to take patient back at his current level of functioning. She advised that he must first go to rehab. Patient needs authorization for
transfer.
Will review with patient's .
Plan: Case management will continue to follow and assist with discharge planning. SNF is auth provided.
[2023-04-17 15:00] VITALS: BP 96/58
[2023-04-17 17:02] LABS: Glucose - Point of Care 159 mg/dl (70-99)
[2023-04-17] MEDS: NOVOLOG FLEXPEN-LOW RESISTANCE 1 UNITS SC (17:19)
[2023-04-17] MEDS: COREG PO (21:06)
[2023-04-17 21:34] LABS: Glucose - Point of Care 160 mg/dl (70-99)
[2023-04-17 23:02] VITALS: BP 121/61
[2023-04-18 08:13] LABS: Glucose - Point of Care 115 mg/dl (70-99)
[2023-04-18 08:16] VITALS: BP 125/77
[2023-04-18] MEDS: PROSCAR 5 MG PO (08:17)
[2023-04-18] MEDS: PROTONIX 40 MG PO (08:17)
[2023-04-18] MEDS: FLOMAX 0.400000000000000022 MG PO (08:17)
[2023-04-18] MEDS: AVAPRO 150 MG PO (08:17)
[2023-04-18] MEDS: ATIVAN 0.5 MG PO ×2 (08:18→20:19)
[2023-04-18] MEDS: VITAMIN D3 (cholecalciferol) 50 MCG PO ×2 (08:18→20:19)
[2023-04-18] MEDS: COREG 3.125 MG PO ×2 (08:18→20:19)
[2023-04-18] MEDS: LAC HYDRIN, AM LACTIN LOTION 1 APPLIC TOPICAL ×2 (08:19→20:23)
[2023-04-18] MEDS: MAGNESIUM OXIDE 500 MG PO ×2 (08:21→21:29)
[2023-04-18] MEDS: NOVOLOG FLEXPEN-LOW RESISTANCE SC (08:24)
[2023-04-18 12:11] LABS: Glucose - Point of Care 199 mg/dl (70-99)
[2023-04-18] MEDS: NOVOLOG FLEXPEN-LOW RESISTANCE 1 UNITS SC (12:14)
--- NOTE | 2023-04-18 12:25 | CM ---
Reviewed chart, need to get updated PT/OT. Spoke with Naz in PT who stated that she can see patient and will advise OT that patient will need OT as well for hopeful auth for transfer to a SNF.
Plan:Case management will continue to follow and assist with discharge planning. Will attempt to obtain authorization for SNF prior to patient returning back to the [facility].
[2023-04-18 13:31] VITALS: BP 107/55; PULSE 77
[2023-04-18 13:34] VITALS: BP 107/55; PULSE 77
[2023-04-18 15:00] VITALS: BP 87/41
--- NOTE | 2023-04-18 16:01 | CM ---
Addendum entered by SELENA Peraza 04/18/23 16:22:
Spoke at length with PT as well about patient's functional status.
Original Note:
Reviewed chart. Spoke with PT/OT. Spoke with patient's yesterday however still could not get a hold of her today. Called x2. Will make local referrals to SNFs. If patient does not get auth for SNF will discuss LTC with family.
Plan: Case management will continue to follow and assist with discharge planning. SNF vrs LTC pending insurance.
--- NOTE | 2023-04-18 16:48 | W.PN.HOSP.TC ---
Addendum entered and electronically signed by Asif Cotton MD 04/18/23 18:07:
Patient seen and examined
Discussed with resident
Discussed with social media sr strategy manager.
Patient with advanced senile dementia.
DANIEL resolved.
No evidence for infection.
Cognitive status at the baseline
Medically stable for placement
Original Note:
Today's Communication/Plan
-
Discharge planning to rehab with further assessment given advanced dementia and possible requirement for long-term care.
Assessment / Plan
Assessment / Plan
IMPRESSION:
Patient with advanced dementia presented with fall
DANIEL
Microscopic hematuria
History of BPH
Recent staph epidermidis UTI
Type II DM
Essential hypertension
Dementia
Anxiety/depression
PLAN:
DANIEL resolved with hydration.
-Likely prerenal versus obstructive
-Discontinued HCTZ
-Started angiotensin receptor maurice
-Started Flomax
-Monitor BP trend with addition of Flomax
History of BPH
-Creatinine 1.5,>>> 1.0
-BUN 46>>>18
-Urinalysis shows microscopic hematuria , RBC > 100
-Monitor I&O
-Renal ultrasound showed Concerns for bladder outlet obstruction, although no evidence of retention over this admission.� Creatinine remained stable with hydration.
-Continue bladder scan protocol.
-Hold irbesartan/hydrochlorothiazide on admission
-Look to restart irbesartan in the absence of thiazide
-Continue finasteride/may want to add tamsulosin
Recent UTI during previous admission
-No evidence of ongoing UTI currently
-Discontinued ciprofloxacin
-Monitor closely
# Type II DM
Glipizide on hold
Sliding scale insulin
# Essential hypertension
Continue Coreg
# Anxiety/depression
Continue Ativan
# Dementia
Reorientation
DVT prophylaxis�SCD
Discharge planning to rehab with further assessment given advanced dementia and possible requirement for long-term care.
Anticipated Discharge: Within 24 hours
Subjective/Interval History
-
Date of Service: April 18, 2023
Objective Data
-
Vital Signs:
Vital Signs
Temp Pulse Resp BP Pulse Ox
97.9 F 78 16 87/41 95
04/18/23 15:00 04/18/23 15:00 04/18/23 15:00 04/18/23 15:00 04/18/23 15:00
I&O
04/17/23 04/18/23 04/19/23
06:59 06:59 06:59
Intake Total 120 / 120 960 / 960
Balance 120 / 120 960 / 960
Review of Systems
-
Unable to obtain full review of systems at this time due to: Dementia
History Source: Patient
All other systems: Not reviewed unless documented
Respiratory: Reports No Symptoms
Cardiac: Reports No Symptoms
Abdomen/GI: Reports No Symptoms
Physical Exam
-
General: Well Developed, Well Nourished and No Apparent Distress
HEENT: Normocephalic
Respiratory: Clear to Auscultation
Cardiac: Regular Rhythm and S1/S2; Negative Murmur or Rub
GI: Soft, Nontender, Nondistended and Normal Bowel Sounds; Negative Organomegaly
Rectal: Deferred by Provider
Musculoskeletal: No Edema
Neuro: Awake; Negative Oriented
Psych: Confused and Apparent Dementia
Data Reviewed
-
Diagnostic Radiology: Image personally visualized and interpreted, Report Reviewed by me and Discussed with Physician
CT Scan: Image personally visualized and interpreted, Report Reviewed by me and Discussed with Physician
Ultrasound: Image personally visualized and interpreted, Report Reviewed by me and Discussed with Physician
Labs: Labs Reviewed by me and Discussed with Physician
Old Records: Reviewed
[2023-04-18 17:28] LABS: Glucose - Point of Care 244 mg/dl (70-99)
[2023-04-18] MEDS: NOVOLOG FLEXPEN-LOW RESISTANCE 2 UNITS SC (18:03)
[2023-04-18 22:05] LABS: Glucose - Point of Care 231 mg/dl (70-99)
[2023-04-18 23:10] VITALS: BP 114/62
[2023-04-19 07:56] VITALS: BP 121/64
[2023-04-19] MEDS: MAGNESIUM OXIDE 500 MG PO ×2 (08:20→21:14)
[2023-04-19] MEDS: VITAMIN D3 (cholecalciferol) 50 MCG PO ×2 (08:20→19:53)
[2023-04-19] MEDS: AVAPRO 150 MG PO (08:20)
[2023-04-19] MEDS: ATIVAN 0.5 MG PO ×2 (08:20→19:53)
[2023-04-19] MEDS: LAC HYDRIN, AM LACTIN LOTION 1 APPLIC TOPICAL ×2 (08:21→19:53)
[2023-04-19] MEDS: COREG 3.125 MG PO ×2 (08:21→19:53)
[2023-04-19] MEDS: COLACE 100 MG PO (08:21)
[2023-04-19] MEDS: FLOMAX 0.400000000000000022 MG PO (08:21)
[2023-04-19] MEDS: PROTONIX 40 MG PO (08:22)
[2023-04-19] MEDS: PROSCAR 5 MG PO (08:22)
[2023-04-19 08:30] LABS: Glucose - Point of Care 100 mg/dl (70-99)
[2023-04-19] MEDS: NOVOLOG FLEXPEN-LOW RESISTANCE SC (09:50)
--- NOTE | 2023-04-19 12:02 | CM ---
Addendum entered by SELENA Peraza 04/19/23 17:24:
Patient's was in patient's room. Went up to meet her. Her correct number is, . Provided SNF list and she stated that she will review. Will f/u in the am for options. Patient was asking about hospice. Will let attending know.
Original Note:
Placed a call to patient's however again there was no answer. Placed a call to patient's family and next of kin but had to leave voice mail messages. Encouraged return call to discuss discharge planning.
If no return call has been received will attempt again as patient would not be able to select, or sign himself into a SNF.
Plan: Case management will continue to follow and assist with discharge planning. Will keep calling family to hopefully connect with someone who can provide assistance with the discharge planning process.
[2023-04-19 14:33] LABS: Glucose - Point of Care 198 mg/dl (70-99)
[2023-04-19] MEDS: NOVOLOG FLEXPEN-LOW RESISTANCE 1 UNITS SC (14:34)
--- NOTE | 2023-04-19 15:48 | W.PN.HOSP.TC ---
Addendum entered and electronically signed by Asif Cotton MD 04/19/23 17:35:
Patient seen and examined.
Discussed with resident.
Impression/plan
Advanced dementia
Resolved acute kidney injury.
Medically stable for discharge pending placement for long-term
Original Note:
Today's Communication/Plan
-
Cognitive status at the baseline
Medically stable for placement
Discharge planning to rehab with further assessment given advanced dementia and possible requirement for long-term care.
Assessment / Plan
Assessment / Plan
IMPRESSION:
Patient with advanced senile dementia.
DANIEL resolved.
No evidence for infection.
Cognitive status at the baseline
Microscopic hematuria
History of BPH
Recent staph epidermidis UTI
Type II DM
Essential hypertension
Dementia
Anxiety/depression
PLAN:
DANIEL resolved with hydration.
-Likely prerenal versus obstructive
-Discontinued HCTZ
-Started angiotensin receptor maurice
-Started Flomax
-Monitor BP trend with addition of Flomax
History of BPH
-Creatinine 1.5,>>> 1.0
-BUN 46>>>18
-Urinalysis shows microscopic hematuria , RBC > 100
-Monitor I&O
-Renal ultrasound showed Concerns for bladder outlet obstruction, although no evidence of retention over this admission.� Creatinine remained stable with hydration.
-Continue bladder scan protocol.
-Hold irbesartan/hydrochlorothiazide on admission
-Look to restart irbesartan in the absence of thiazide
-Continue finasteride/may want to add tamsulosin
Recent UTI during previous admission
-No evidence of ongoing UTI currently
-Discontinued ciprofloxacin
-Monitor closely
# Type II DM
Glipizide on hold
Sliding scale insulin
# Essential hypertension
Continue Coreg
# Anxiety/depression
Continue Ativan
# Dementia
Reorientation
DVT prophylaxis�SCD
Discharge planning to rehab with further assessment given advanced dementia and possible requirement for long-term care.
Anticipated Discharge: Within 24 hours
Subjective/Interval History
-
Date of Service: April 19, 2023
Objective Data
-
Vital Signs:
Vital Signs
Temp Pulse Resp BP Pulse Ox
98.1 F 71 17 121/64 96
04/19/23 07:56 04/19/23 07:56 04/19/23 07:56 04/19/23 07:56 04/19/23 07:56
I&O
04/18/23 04/19/23 04/20/23
06:59 06:59 06:59
Intake Total 960 / 960 1020 / 1020
Balance 960 / 960 1020 / 1020
Review of Systems
-
Unable to obtain full review of systems at this time due to: Dementia
History Source: Patient
All other systems: Not reviewed unless documented
Respiratory: Reports No Symptoms
Cardiac: Reports No Symptoms
Abdomen/GI: Reports No Symptoms
Physical Exam
-
General: Well Developed, Well Nourished and No Apparent Distress
HEENT: Normocephalic
Respiratory: Clear to Auscultation
Cardiac: Regular Rhythm and S1/S2; Negative Murmur or Rub
GI: Soft, Nontender, Nondistended and Normal Bowel Sounds; Negative Organomegaly
Rectal: Deferred by Provider
Musculoskeletal: No Edema
Neuro: Awake; Negative Oriented
Psych: Confused and Apparent Dementia
Data Reviewed
-
Diagnostic Radiology: Image personally visualized and interpreted, Report Reviewed by me and Discussed with Physician
CT Scan: Image personally visualized and interpreted, Report Reviewed by me and Discussed with Physician
Ultrasound: Image personally visualized and interpreted, Report Reviewed by me and Discussed with Physician
Labs: Labs Reviewed by me and Discussed with Physician
Old Records: Reviewed
[2023-04-19 16:03] VITALS: BP 124/69
[2023-04-19 17:58] LABS: Glucose - Point of Care 249 mg/dl (70-99)
[2023-04-19] MEDS: NOVOLOG FLEXPEN-LOW RESISTANCE 2 UNITS SC (18:10)
[2023-04-19 21:08] LABS: Glucose - Point of Care 202 mg/dl (70-99)
[2023-04-19 23:00] VITALS: BP 136/77
[2023-04-20 07:38] VITALS: BP 127/74
[2023-04-20] MEDS: NOVOLOG FLEXPEN-LOW RESISTANCE SC (08:45)
[2023-04-20 08:46] LABS: Glucose - Point of Care 143 mg/dl (70-99)
[2023-04-20] MEDS: MAGNESIUM OXIDE 500 MG PO ×2 (08:46→21:11)
[2023-04-20] MEDS: PROTONIX 40 MG PO (08:46)
[2023-04-20] MEDS: FLOMAX 0.400000000000000022 MG PO (08:46)
[2023-04-20] MEDS: AVAPRO 150 MG PO (08:46)
[2023-04-20] MEDS: ATIVAN 0.5 MG PO ×2 (08:46→20:13)
[2023-04-20] MEDS: LAC HYDRIN, AM LACTIN LOTION 1 APPLIC TOPICAL ×2 (08:47→20:12)
[2023-04-20] MEDS: VITAMIN D3 (cholecalciferol) 50 MCG PO ×2 (08:47→20:13)
[2023-04-20] MEDS: COREG 3.125 MG PO ×2 (08:47→20:12)
[2023-04-20] MEDS: PROSCAR 5 MG PO (08:47)
[2023-04-20 12:34] LABS: Glucose - Point of Care 280 mg/dl (70-99)
[2023-04-20] MEDS: NOVOLOG FLEXPEN-LOW RESISTANCE 3 UNITS SC ×2 (12:44→17:23)
--- NOTE | 2023-04-20 15:02 | CM ---
Spoke with attending who stated that patient's is requesting hospice. Texted hospice liason to update.
Will f/u with patient's to determine her thoughts.
Plan: Case management will continue to follow and assist with discharge planning. Tentative hospice.
[2023-04-20 15:32] VITALS: BP 131/78
--- NOTE | 2023-04-20 16:31 | CM ---
Upate sent to hospice liason that patient's is requesting information. Attending updated.
Plan: Case management will continue to follow and assist with discharge planning. Tentative hospice potentially at facility.
[2023-04-20 17:24] LABS: Glucose - Point of Care 262 mg/dl (70-99)
--- NOTE | 2023-04-20 17:35 | W.PN.HOSP.TC ---
Today's Communication/Plan
-
Disposition: Discussed with case management and patient's over the phone. Patient with advanced dementia transition from home to assisted living over 2 and half years ago. Progressive failure to thrive with worsening memory, decreasing oral
intake, multiple unwitnessed falls. Presented with acute kidney injury secondary to dehydration. Spouse inquiring about hospice option which would be appropriate in patient with advanced dementia and failure to thrive. Plan is to discharge to
senior care facility with likely transition to hospice.
Assessment / Plan
Assessment / Plan
IMPRESSION:
Patient with advanced senile dementia.
DANIEL resolved.
No evidence for infection.
Cognitive status at the baseline
Microscopic hematuria
History of BPH
Recent staph epidermidis UTI
Type II DM
Essential hypertension
Dementia
Anxiety/depression
PLAN:
DANIEL resolved with hydration.
-Likely prerenal versus obstructive
-Discontinued HCTZ
-Started angiotensin receptor maurice
-Started Flomax
-Monitor BP trend with addition of Flomax
History of BPH
-Creatinine 1.5,>>> 1.0
-BUN 46>>>18
-Urinalysis shows microscopic hematuria , RBC > 100
-Monitor I&O
-Renal ultrasound showed Concerns for bladder outlet obstruction, although no evidence of retention over this admission.� Creatinine remained stable with hydration.
-Continue bladder scan protocol.
-Hold irbesartan/hydrochlorothiazide on admission
-Look to restart irbesartan in the absence of thiazide
-Continue finasteride/may want to add tamsulosin
Recent UTI during previous admission
-No evidence of ongoing UTI currently
-Discontinued ciprofloxacin
-Monitor closely
# Type II DM
Glipizide on hold
Sliding scale insulin
# Essential hypertension
Continue Coreg
# Anxiety/depression
Continue Ativan
# Dementia
Reorientation
DVT prophylaxis�SCD
Disposition: Discussed with case management and patient's over the phone. Patient with advanced dementia transition from home to assisted living over 2 and half years ago. Progressive failure to thrive with worsening memory, decreasing oral
intake, multiple unwitnessed falls. Presented with acute kidney injury secondary to dehydration. Spouse inquiring about hospice option which would be appropriate in patient with advanced dementia and failure to thrive. Plan is to discharge to
senior care facility with likely transition to hospice.
Anticipated Discharge: 24 - 48 hours
Subjective/Interval History
-
Date of Service: April 20, 2023
Objective Data
-
Vital Signs:
Vital Signs
Temp Pulse Resp BP Pulse Ox
98.1 F 77 16 131/78 97
04/20/23 15:32 04/20/23 15:32 04/20/23 15:32 04/20/23 15:32 04/20/23 15:32
I&O
04/19/23 04/20/23 04/21/23
06:59 06:59 06:59
Intake Total 1020 / 1020 720 / 720
Balance 1020 / 1020 720 / 720
Physical Exam
-
General: Well Developed and No Apparent Distress
HEENT: Normocephalic, Atraumatic and Moist Mucous Membranes
Respiratory: Clear to Auscultation
Cardiac: Regular Rhythm and S1/S2; Negative Murmur, Rub or Gallop
GI: Soft, Nontender, Nondistended and Normal Bowel Sounds; Negative Organomegaly
Rectal: Deferred by Provider
Musculoskeletal: No Clubbing, No Cyanosis and No Edema
Skin: Negative Rash
Neuro: Nonfocal/Grossly Intact
[2023-04-20 21:34] LABS: Glucose - Point of Care 225 mg/dl (70-99)
[2023-04-20 23:24] VITALS: BP 127/72
[2023-04-21 07:43] VITALS: BP 151/105
[2023-04-21 08:01] LABS: Glucose - Point of Care 144 mg/dl (70-99)
[2023-04-21] MEDS: ATIVAN 0.5 MG PO (08:05)
[2023-04-21] MEDS: PROTONIX 40 MG PO (08:05)
[2023-04-21] MEDS: COLACE 100 MG PO (08:05)
[2023-04-21] MEDS: VITAMIN D3 (cholecalciferol) 50 MCG PO (08:05)
[2023-04-21] MEDS: FLOMAX 0.400000000000000022 MG PO (08:05)
[2023-04-21] MEDS: PROSCAR 5 MG PO (08:05)
[2023-04-21] MEDS: NOVOLOG FLEXPEN-LOW RESISTANCE SC (08:05)
[2023-04-21] MEDS: MAGNESIUM OXIDE 500 MG PO (08:06)
[2023-04-21] MEDS: LAC HYDRIN, AM LACTIN LOTION 1 APPLIC TOPICAL (08:06)
[2023-04-21] MEDS: AVAPRO 150 MG PO (08:06)
[2023-04-21] MEDS: COREG 3.125 MG PO (08:06)
--- NOTE | 2023-04-21 10:00 | CM ---
Addendum entered by Radha Lovett [facility] 04/21/23 11:41:
Spoke with patient's who is agreeable to patient transitioning to [facility] today. Will update her with time. Will complete medical necessity and transfer form for patient and provide to [employer].
Addendum entered by Radha Lovett [facility] 04/21/23 11:28:
Placed a call to [facility] and spoke with a employee's representative named, Tarsha, who took information regarding member and issued an authorization for 3 days sub acute level-ref# [id number]. NRD-04/24-fax clinical to, .
Provided this information to Fransisco in admissions at [place] who provided number for [facility]-[phone] station [phone] and fax# [phone].
Addendum entered by Radha Lovett [facility] 04/21/23 11:26:
Placed a call to patient's who is in agreement with [facility], skilled and then transition to hospice if appropriate.
Addendum entered by Radha Lovett [facility] 04/21/23 10:34:
Received confirmation from [facility] that they can accept patient. NPI for attending Dr. Paul Mcgregor [id number] and facility [id number]. Will call to [facility] to obtain authorization.
Original Note:
Reviewed chart, spoke with attending who stated that patient has been medically cleared for discharge. Sent new referrals to [facility], [facility], [facility] and [facility]. Will discuss with patient's .
Plan: Case management will continue to follow and assist with discharge planning. Transfer to SNF.
--- NOTE | 2023-04-21 12:06 | W.DS.TRANS ---
DC Summary - [employer]
-
Discharge Instructions:
Discharge Diagnosis/Procedures Dementia with failure to thrive.
Diet Regular
Instructions:
Stand-Alone Forms:
Changes to Home Medications: Yes
Discharge Medications:
DC Medications w/original date entered in [employer]
finasteride 5 mg tablet 5 mg PO DAILY Urinary issue 03/16/17
ammonium lactate 12 % lotion 1 applic topical BID both feet 04/04/22
pioglitazone 30 mg tablet (Actos) 30 mg PO DAILY diabetes 06/08/22
magnesium oxide 500 mg PO HS Electrolyte Repletion 03/22/23
Multi Complete Capsule 1 cap PO DAILY Supplement 04/05/23
cholecalciferol (vitamin D3) 50 mcg (2,000 unit) tablet 50 mcg PO BID Supplement 04/05/23
docusate sodium 100 mg capsule 100 mg PO MOWEFR@0800 Constipation 04/05/23
loperamide 2 mg capsule 2 mg PO Q4H PRN diarrhea 04/05/23
melatonin 10 mg tablet 10 mg PO HS PRN insomnia 04/05/23
omega 0-dgn-ykh-fish oil 1,000 mg (120 mg-180 mg) capsule (Fish Oil) 1 cap PO DAILY Supplement 04/05/23
pantoprazole 40 mg tablet,delayed release 40 mg PO DAILY Gastrointestinal Issue 04/05/23
repaglinide 1 mg tablet 1 mg PO TID@0800,1200,1700 diabetes 04/05/23
zinc oxide-cod liver oil 40 % topical paste (Desitin) 1 applic topical BID apply to buttocks 04/05/23
carvedilol 3.125 mg tablet 3.125 mg PO BID #60 tabs 04/10/23
lorazepam 0.5 mg tablet 0.5 mg PO Q6HPRN PRN anxiety #1 tab 04/10/23
magnesium oxide 500 mg PO DAILY Electrolyte Repletion 04/13/23
irbesartan 150 mg tablet 150 mg PO DAILY #30 tabs 04/21/23
lorazepam 0.5 mg tablet 0.5 mg PO BID anxiety #14 tabs 04/21/23
tamsulosin 0.4 mg capsule 0.4 mg PO DAILY #3 caps 04/21/23
Home Medication Changes
HCTZ, glipizide stopped
Pending Results: No
[2023-04-21 13:07] LABS: Glucose - Point of Care 210 mg/dl (70-99)
[2023-04-21] MEDS: NOVOLOG FLEXPEN-LOW RESISTANCE 2 UNITS SC (13:07)
[2023-04-21 17:28] LABS: Glucose - Point of Care 267 mg/dl (70-99)
[2023-04-21] MEDS: NOVOLOG FLEXPEN-LOW RESISTANCE 3 UNITS SC (17:28)
== END 2023-04-21 18:00 | DRG 683 ==
LOC: 3 WEST ACU 23:42
PROVIDERS: Internal Medicine; Nurse Practitioner; ADMITTING PHYSICIAN Hospitalist; ATTENDING PHYSICIAN Internal Medicine; EMERGENCY PHYSICIAN Emergency Medicine; FAMILY PHYSICIAN Psychiatry & Neurology Neurology
DX: N17.9 Acute kidney failure, unspecified (principal); F02.83 Dementia in other diseases classified elsewhere, unspecified severity, with mood disturbance; F02.84 Dementia in other diseases classified elsewhere, unspecified severity, with anxiety; E86.0 Dehydration; R62.7 Adult failure to thrive; G30.9 Alzheimer's disease, unspecified; E11.65 Type 2 diabetes mellitus with hyperglycemia; I10 Essential (primary) hypertension; F32.A Depression, unspecified; Z87.440 Personal history of urinary (tract) infections
CPT/HCPCS: 51701; 51798; 70450; 72125; 76770; 80048; 80053; 81003; 81015; 82962; 85025; 87070; 96360; 97163; 97167; 97530; 97535; 99285